=== PATIENT | male | born 1935 | race Caucasian/White ===

== ENCOUNTER 2017-06-11 15:17 | Inpatient (IN) ==
[2017-06-11] MEDS ORDERED: LIDOCAINE 1% 20 ML VIAL SQ ONE (15:18)
[2017-06-11] MEDS ORDERED: 0.9 % SODIUM CHLORIDE 1,000 ML IV ONE (15:47)
[2017-06-11] MEDS ORDERED: ACETAMINOPHEN 325 MG TABLET PO ONE (15:47)
--- NOTE | 2017-06-11 16:40 | XRay Report ---
CLINICAL INFORMATION: Fever TECHNIQUE: AP portable semiupright chest x-ray COMPARISON: 05/06/2017, 09/29/2016, 11/28/2015 FINDINGS: Mild cardiomegaly is unchanged. Pulmonary vascularity is normal. No pulmonary congestion. No pulmonary edema. Pulmonary parenchymal abnormality. No consolidation. No pulmonary mass. Pippa and mediastinum are negative. No acute abnormality. No interval change IMPRESSION: 1. No focal pulmonary parenchymal infiltrate 2. No acute abnormality. No interval change Interpreted and Authenticated by: Javier Reyes 06/11/17
[2017-06-11 16:48] LABS: Basophils # (Auto) 0 K/mcL (0.0-0.3); Basophils % (Auto) 0 % (0.0-2.0); Eosinophils # (Auto) 0 K/mcL (0.0-0.7); Eosinophils % (Auto) 0.1 % (0.0-7.0); Granulocytes % (Auto) 89.5 % (38.0-78.0); Lymphocytes # (Auto) 0.4 K/mcL (1.5-4.8); Lymphocytes % (Auto) 2.6 % (15.5-49.0); Mean Cell Volume 92.4 fL (80.0-100.0); Mean Corpuscular HGB Conc 33.8 g/dL (31.0-36.0); Mean Corpuscular Hemoglobin 31.2 pg (26.0-34.0); Monocytes # (Auto) 1.2 K/mcL (0.1-0.9); Monocytes % (Auto) 7.8 % (1.0-12.0); Platelet Count 192 K/mcL (140-440); RBC 3.04 M/mcL (4.50-5.90); Red Cell Distribution Width 14.6 % (11.5-14.5)
[2017-06-11 17:08] LABS: ALT/SGPT 10 U/l (0-40); Albumin 3.6 gm/dL (3.2-5.2); Alkaline Phosphatase 68 U/L (39-117); Blood Urea Nitrogen 46 mg/dl (8-23); C-Reactive Protein 9.9 mg/dl (0.0-0.8); Lipase 25 U/L (7-60)
--- NOTE | 2017-06-11 19:07 | Cat Scan Report ---
CLINICAL INFORMATION: Fever. Lethargy COMPARISON: None. TECHNIQUE: Axial noncontrast-enhanced images through the brain. FINDINGS: No acute intracranial hemorrhage. No subdural hematoma. No subarachnoid hemorrhage. No intra-axial hemorrhage. No focal attenuation abnormalities or localized mass effect. No midline shift. There is ventriculomegaly. There is white matter abnormality. This may be due to small vessel ischemic change. Normal pressure hydrocephalus cannot be excluded. Comparison with any prior examinations would be of benefit. There is a small focal low-density abnormality within the right brennan radiata consistent with old infarction. No acute intracranial abnormalities. Brainstem and cerebellum are negative. Basilar cisterns are normal. No hyperdense middle cerebral artery sign. No calvarial fracture. No lytic lesion. Temporal bones are negative. Paranasal sinuses are negative IMPRESSION: 1. Ventricular enlargement. Periventricular white matter abnormality may be small vessel ischemic change or interstitial edema. Clinical correlation for symptoms of normal pressure hydrocephalus recommended. 2. 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 No acute hemorrhage. No localized mass effect. Interpreted and Authenticated by: Javier Reyes 06/11/17
--- NOTE | 2017-06-11 19:17 | Cat Scan Report ---
CLINICAL INFORMATION: Fever. Pain. COMPARISON: None. TECHNIQUE: Axial images were obtained through the abdomen and pelvis. Sagittally and coronally reformatted images. Intravenous contrast material was not administered FINDINGS: Lung bases are negative. No parenchymal consolidation. No pleural fluid. No pericardial fluid. Incidental note is made of a small hiatal hernia Liver is negative to limits of noncontrast enhanced examination. Normal smooth liver contour. No ascites. Gallbladder is present. There are calcified gallstones in the dependent portions of the gallbladder. No pericholecystic fluid. No dilated bile ducts. Previous right nephrectomy. Left kidney is negative. No hydronephrosis. No detectable solid mass on this noncontrast enhanced examination. No obstructing or nonobstructing calculi. There is: Within the right nephrectomy bed. There are diverticuli. There is a focal abnormality adjacent to the ascending colon within the nephrectomy bed. This may be a small focal localized inflammatory process. This could be related to diverticulitis. No well-defined abscess. Adrenal glands are negative. Urinary bladder is abnormal. There is diffuse bladder wall thickening without discrete focal mass. This may be cyst. No intramural air. No bladder calculus. No detectable colonic mass. There is diverticulosis. There is mild pericolonic inflammatory change adjacent to the descending colon. As described above there is mild pericolonic inflammatory change in the right nephrectomy bed. Findings may be related to diverticulitis. No discrete abscess. No detectable colonic mass. No mechanical small bowel obstruction. No pathologic retroperitoneal or mesenteric adenopathy. No free intraperitoneal fluid. No localized fluid collections. No pneumatosis. No biliary or portal venous gas. There is atherosclerotic calcification of the abdominal aorta. No celiac or superior mesenteric artery stenosis. No abdominal aortic aneurysm. Lumbar spine is negative. No compression deformities. There is mild degenerative disc disease. There is multilevel degenerative facet arthropathy. Sacrum and pelvis are negative. No acute fracture. No lytic lesion. There is a prosthetic left hip. IMPRESSION: 1. Diffusely thickened urinary bladder wall. Cystitis is possible 2. Previous right nephrectomy 3. Diverticulosis. Pericolonic inflammatory change surrounding portions of the descending colon and: In the right nephrectomy bed. Mild diverticulitis possible. Interpreted and Authenticated by: Javier Reyes 06/11/17
--- NOTE | 2017-06-11 19:20 | XRay Report ---
CLINICAL INFORMATION: Fever of unknown origin TECHNIQUE: Informed consent was obtained. Fluoroscopy was utilized. Routine Betadine skin cleansing. 1% lidocaine injected subcutaneously and deep. 18-gauge spinal needle was utilized. Lumbar puncture performed at L2-L3. 9 mL clear CSF removed and sent to the laboratory for analysis IMPRESSION: Fluoroscopic guided lumbar puncture as above Interpreted and Authenticated by: Javier Reyes 06/11/17
--- NOTE | 2017-06-11 19:34 | Emergency Department Note ---
General Adult HPI - General Chief complaint: Fever Stated complaint: fever and weakness. Time Seen by Provider: 06/11/17 15:30 Source: patient Mode of arrival: ambulatory Limitations: no limitations - History of Present Illness HPI Narrative: 82-year-old male with chills for the last 2-3 days. Then today he developed fever with some lethargy and nausea. Decreased appetite last few days. He has had some urinary incontinence, though he has had urinary issues in the past. No shortness of breath. His right eye had a little bit of discharge but this seems to have resolved by the time he is here. He admits to diarrhea yesterday. His right hip osteoarthritis is acting up but this is well-known. His reports that he has been very cranky and obnoxious lately - Related Data Home Medications Medication Instructions Recorded Confirmed ascorbic acid (vitamin C) 1,000 mg 1,000 mg PO QDAY tab 03/23/15 06/06/17 tablet folic acid 800 mcg tablet 800 mcg PO QDAY tab 03/23/15 06/06/17 multivitamin tablet 1 tab PO QDAY tab 03/23/15 06/06/17 liraglutide 0.6 mg/0.1 mL (18 mg/3 1.2 mg SUB-Q QDAY 02/16/16 06/06/17 mL) subcutaneous pen injector Previous Rx's Medication Instructions Recorded Acetaminophen [Tylenol] 650 mg PO Q4HP PRN #0 tab 10/26/15 lancets 32 gauge See Dose Instructions .ROUTE 03/21/16 .MEDSUPPLY #100 each insulin glargine 300 unit/mL (1.5 27 unit SUB-Q QDAY #1.5 ml 03/27/16 mL) subcutaneous pen blood sugar diagnostic strips See Dose Instructions .ROUTE 04/05/16 .MEDSUPPLY #50 each glipizide ER 5 mg tablet, extended 5 mg PO QDAY 90 Days 11/02/16 release 24 hr cholecalciferol (vitamin D3) 1,000 1,000 unit PO QDAY #90 cap 12/04/16 unit capsule [employer] membership #1 each 01/02/17 sodium bicarbonate 650 mg tablet 1,300 mg PO BID #360 tab 03/06/17 amlodipine 5 mg tablet 5 mg PO BID 90 Days 03/08/17 calcium acetate 667 mg capsule 667 mg PO TID 90 Days 03/08/17 doxazosin 4 mg tablet 4 mg PO BID #180 tab 03/08/17 furosemide 40 mg tablet 80 mg PO .COMPLEX #180 tab 03/08/17 lisinopril 2.5 mg tablet 2.5 mg PO QDAY #90 tab 03/08/17 calcitriol 0.25 mcg capsule 0.25 mcg PO QOD 90 Days 04/25/17 glipizide ER 2.5 mg tablet, 2.5 mg PO QDAY #90 tab 04/25/17 extended release 24 hr atorvastatin 10 mg tablet 10 mg PO QDAY 90 Days 04/26/17 gabapentin 600 mg tablet 600 mg PO BID 90 Days 04/26/17 tramadol 50 mg tablet 50 mg PO Q6HP PRN #100 tab 06/06/17 Allergies Allergy/AdvReac Type Severity Reaction Status Date / Time hydrocodone Allergy Unknown Unknown Verified 06/11/17 15:23 Review of Systems All systems ED: reviewed and negative except as stated. Past Medical History - Past Medical History Attestation: Yes: The following information was validated with the patient. Medical history: Reports: arthritis, diabetes, hyperlipidemia, hypertension, renal disease, other (Anemia) Surgical history ED: Reports: cataract, hip replacement, other (Nephrectomy, TURP) - Social History smoking status: Former smoker Alcohol use: Reports: None Drug use: Reports: none Physical Exam Normocephalic atraumatic. Conjunctive are clear sclerae nonicteric. No nasal discharge or congestion. Oropharynx is pink and moist. Neck is supple without lymphadenopathy thyromegaly or carotid bruit. Heart is regular rate and rhythm no murmurs appreciated. Lungs are clear to auscultation bilaterally without wheezes rales rhonchi or respiratory distress. Abdomen soft nontender nondistended. No peritoneal signs or guarding. +1 pedal edema laterally. Tender at right hip area and he does not want to lay on that side. Alert oriented able answer questions appropriately. No dysarthria or facial dissymmetry. Globally weaker than expected. Irritable-his reports that this is a personality change - General Limitations: no limitations Course Vital Signs Temperature 100.2 F H 06/11/17 15:18 Pulse Rate 78 06/11/17 15:18 Respiratory Rate 16 06/11/17 15:18 Blood Pressure 173/65 06/11/17 15:18 Pulse Oximetry (%) 96 06/11/17 15:18 Temperature 100.7 F H 06/11/17 17:27 Pulse Rate 72 06/11/17 19:31 Respiratory Rate 24 H 06/11/17 18:16 Blood Pressure 142/53 06/11/17 19:31 Pulse Oximetry (%) 95 06/11/17 19:31 Medical Decision Making - Lab Data Lab results reviewed: Yes I reviewed the patient's lab results. Result diagrams: 06/11/17 16:00 06/11/17 16:00 Lab Results 06/11/17 06/11/17 06/11/17 Range/Units 16:00 16:00 16:00 WBC 15.4 H (4.5-11.0) K/mcL RBC 3.04 L (4.50-5.90) M/mcL Hgb 9.5 L (13.5-16.5) g/dL Hct 28.1 L (41.0-55.0) % MCV 92.4 (80.0-100.0) fL MCH 31.2 (26.0-34.0) pg MCHC 33.8 (31.0-36.0) g/dL RDW 14.6 H (11.5-14.5) % Plt Count 192 (140-440) K/mcL MPV 7.9 (7.4-10.4) fL Gran % 89.5 H (38.0-78.0) % Lymph % (Auto) 2.6 L (15.5-49.0) % [place] % (Auto) 7.8 (1.0-12.0) % Eos % (Auto) 0.1 (0.0-7.0) % Baso % (Auto) 0 (0.0-2.0) % Gran # 13.8 H (1.8-8.0) K/mcL Lymph # (Auto) 0.4 L (1.5-4.8) K/mcL [place] # (Auto) 1.2 H (0.1-0.9) K/mcL Eos # (Auto) 0 (0.0-0.7) K/mcL Baso # (Auto) 0 (0.0-0.3) K/mcL VBG Lactic Acid 1.0 (0.5-2.2) mmol/L Sodium 135 (133-145) mmol/L Potassium 4.9 (3.3-5.1) mmol/L Chloride 102 (96-108) mmol/L Carbon Dioxide 19 L (22-30) mmol/L Anion Gap 14.0 (8-16) BUN 46 H (8-23) mg/dl Creatinine 4.2 H (0.7-1.2) mg/dl GFR Calculation 12 Glucose 135 H (70-105) mg/dL Calcium 9.6 (8.6-10.4) mg/dl Total Bilirubin 0.7 (0.0-1.0) mg/dL AST 7 (0-37) U/l ALT 10 (0-40) U/l Alkaline Phosphatase 68 (39-117) U/L C-Reactive Protein 9.9 H (0.0-0.8) mg/dl Total Protein 7.1 (5.9-8.4) gm/dL Albumin 3.6 (3.2-5.2) gm/dL Globulin 3.5 (2.2-3.7) gm/dL Albumin/Globulin Ratio 1.0 (1.0-2.3) Lipase 25 (7-60) U/L Urinalysis [id number] dipstick shows moderate blood trace leukocytes negative nitrites specific gravity 1.010 Flu swab negative for AFB - Radiology Data Radiology results reviewed: Yes I reviewed the patient's radiology results. CT scan of the head without contrast shows old stroke but no acute pathology CT scan of the abdomen and pelvis without contrast is done secondary to elevated creatinine -shows possible mild diverticulitis or cystitis but no definite pathology [id number]-xltk bladder scan shows 100 mL in the bladder - EKG Data EKG #1 EKG attestation: Yes I reviewed and interpreted this EKG. EKG results narrative: EKG shows a rate of 75 with left bundle branch block otherwise normal sinus rhythm Disposition Pt seen by [facility]/PA only: No Clinical Impression: Fever of unknown origin, Chronic renal failure, stage 4 (severe) Summary: During workup patient was given normal saline and some Tylenol. He was not complaining of belly pain or dysuria Laboratory shows elevated white count and inflammatory markers concerning for occult infection. CT of abdomen and pelvis shows possible mild cystitis or diverticulitis however this is not very consistent with his exam. Cerebral spinal fluid labs are pending. Cultures are ordered and antibiotics started Discussed case with Dr. Haile our hospitalist who agreed to accept patient for further inpatient care Disposition: Xfer As Inpt ([facility]) Condition: Serious Referrals: Vimal Clark PA-C [Primary Care Provider] -
[2017-06-11] MEDS ORDERED: 0.9 % SODIUM CHLORIDE 1,000 ML IV SCH (19:47)
[2017-06-11] MEDS ORDERED: POTASSIUM CHLORIDE 20 MEQ PACKET PO PRN (19:47)
[2017-06-11] MEDS ORDERED: AMPICILLIN SODIUM 2 GM VIAL IV SCH (19:47)
[2017-06-11] MEDS ORDERED: ONDANSETRON 4 MG/2 ML VIAL IV PRN (19:47)
[2017-06-11] MEDS ORDERED: traZODone HCL 50 MG TABLET PO PRN (19:47)
[2017-06-11] MEDS ORDERED: ACYCLOVIR SODIUM 500 MG VIAL IV SCH (19:47)
[2017-06-11] MEDS ORDERED: ACETAMINOPHEN 325 MG TABLET PO PRN (19:47)
[2017-06-11] MEDS ORDERED: VANCOMYCIN PER PHARMACY IV SCH (19:47)
[2017-06-11] MEDS ORDERED: ACETAMINOPHEN 1,000 MG/100 ML BOTTLE IV PRN (19:47)
[2017-06-11] MEDS ORDERED: MAGNESIUM SULFATE 2 GM/50 ML BAG IV PRN (19:47)
[2017-06-11] MEDS ORDERED: metroNIDAZOLE 500 MG/100 ML BAG IV ONE (19:55)
[2017-06-11] MEDS ORDERED: LEVOFLOXACIN 500 MG/100 ML BAG IV ONE (19:55)
[2017-06-11 20:46] LABS: Glucose,CSF 84 mg/dL (45-75)
[2017-06-11] MEDS ORDERED: ACYCLOVIR SODIUM 800 MG in 0.9 % SODIUM CHLORIDE 150 ML IV SCH (21:00)
[2017-06-11] MEDS ORDERED: SENNOSIDES/DOCUSATE SODIUM 1 TAB TABLET PO SCH (21:00)
[2017-06-11] MEDS: DOCUSATE SODIUM 100 MG CAPSULE PO SCH (21:13)
[2017-06-11 21:30] LABS: Appearance,CSF CLEAR; Nucleated Cells,CSF 2 /cumm (0-5); Red Blood Cell,CSF 0 /cumm (0-1)
[2017-06-11] MEDS ORDERED: VANCOMYCIN 500 MG VIAL ONE (21:30)
[2017-06-11] MEDS ORDERED: VANCOMYCIN 1,500 MG in 0.9 % SODIUM CHLORIDE 500 ML IV ONE (22:00)
[2017-06-11] MEDS ORDERED: AMPICILLIN SODIUM 2 GM in 0.9 % SODIUM CHLORIDE 100 ML IV ONE (22:00)
[2017-06-11 22:01] LABS: C-Reactive Protein 10.7 mg/dl (0.0-0.8)
[2017-06-11] MEDS: 0.9 % SODIUM CHLORIDE 10 ML SYRINGE IV SCH (22:03)
[2017-06-11] MEDS: cefTRIAXone 2 GM in DEXTROSE 5% IN WATER 50 ML IV SCH (22:55)
--- NOTE | 2017-06-11 23:14 | Internal Med History&Physical ---
Medical - H&P: [facility] Patient information: Note initiated : 06/11/17 at 11:10 pm Service Date, if different from initiated Date: [] Patient: Zachary Villavicencio 82 y/o M admitted on 06/11/17 for fever and weakness.. Chief Complaint: [] Chief complaint: ever and weakness History of present illness: Mr. Villavicencio is a 82 year old M who presents to [facility] ER with confusion and fever and weakness. atient's symptom started roughly 2-3 days ago with mild dysuria and shaking chills. however over the next 48 hours he is at significant change in mental status has been belligerent and very confused along with fever of 102. ost of the history was obtained from his . He did not have any shortness of breath diarrhea or photophobia but endorses to headache and myalgias. e denies flulike symptoms or ear or nose discharge. He denies sick contacts. He denies weight loss plan wrist swelling initial workup in the ER was significant for white count over 15,400. Patient underwent lumbar puncture along with CT abdomen and chest to rule out occult infectious source. hospitalist service was then consulted at the time of examination patient isfairly confused. Most of the history is obtained from ED records and patient's . patient was able to participate in review of systems he denies active chest pain shortness of breath and lightheadedness. He was fairly combative during lumbar puncture. REVIEW OF SYSTEMS 10.2 system was attempted and is negative except for ones discussed above Medical - H&P: PMH Medical history: 1. Hypertension. 2. Benign prostate hypertrophy. 3. Diabetes mellitus type 2. 4. Hyperlipidemia. 5. Iron deficiency anemia. 6. Neuropathy. 7. Chronic kidney disease stage 5, baseline creatinine over 3.5 Pertinent family history: CAD father colon cancer mother Social history: with [place] retired Functional capacity: uses cane/walker Smoking status: Never smoker Drug use: none Alcohol use: none Medical - H&P: Meds Home Medications Medication Instructions Recorded Confirmed Type ascorbic acid (vitamin C) 1,000 mg 1,000 mg PO QDAY tab 03/23/15 06/06/17 History tablet folic acid 800 mcg tablet 800 mcg PO QDAY tab 03/23/15 06/06/17 History multivitamin tablet 1 tab PO QDAY tab 03/23/15 06/06/17 History Acetaminophen [Tylenol] 650 mg PO Q4HP PRN #0 tab 10/26/15 06/06/17 Rx liraglutide 0.6 mg/0.1 mL (18 mg/3 1.2 mg SUB-Q QDAY 02/16/16 06/06/17 History mL) subcutaneous pen injector lancets 32 gauge See Dose Instructions .ROUTE 03/21/16 06/06/17 Rx .MEDSUPPLY #100 each insulin glargine 300 unit/mL (1.5 27 unit SUB-Q QDAY #1.5 ml 03/27/16 06/06/17 Rx mL) subcutaneous pen blood sugar diagnostic strips See Dose Instructions .ROUTE 04/05/16 06/06/17 Rx .MEDSUPPLY #50 each glipizide ER 5 mg tablet, extended 5 mg PO QDAY 90 Days 11/02/16 06/06/17 Rx release 24 hr cholecalciferol (vitamin D3) 1,000 1,000 unit PO QDAY #90 cap 12/04/16 06/06/17 Rx unit capsule athletic club membership #1 each 01/02/17 06/06/17 Rx sodium bicarbonate 650 mg tablet 1,300 mg PO BID #360 tab 03/06/17 06/06/17 Rx amlodipine 5 mg tablet 5 mg PO BID 90 Days 03/08/17 06/06/17 Rx calcium acetate 667 mg capsule 667 mg PO TID 90 Days 03/08/17 06/06/17 Rx doxazosin 4 mg tablet 4 mg PO BID #180 tab 03/08/17 06/06/17 Rx furosemide 40 mg tablet 80 mg PO .COMPLEX #180 tab 03/08/17 06/06/17 Rx lisinopril 2.5 mg tablet 2.5 mg PO QDAY #90 tab 03/08/17 06/06/17 Rx calcitriol 0.25 mcg capsule 0.25 mcg PO QOD 90 Days 04/25/17 06/06/17 Rx atorvastatin 10 mg tablet 10 mg PO QDAY 90 Days 04/26/17 06/06/17 Rx gabapentin 600 mg tablet 600 mg PO BID 90 Days 04/26/17 06/06/17 Rx tramadol 50 mg tablet 50 mg PO Q6HP PRN #100 tab 06/06/17 06/12/17 Rx Atorvastatin 10 mg PO DAILY 06/12/17 06/12/17 History Allergies Allergy/AdvReac Type Severity Reaction Status Date / Time hydrocodone Allergy Unknown Unknown Verified 06/11/17 15:23 Medical - H&P: Exam - Constitutional Vitals: Temp Pulse Resp BP Pulse Ox 100.7 F H 72 24 H 142/53 95 06/11/17 19:55 06/11/17 19:55 06/11/17 19:55 06/11/17 19:55 06/11/17 19:55 General appearance: average body habitus, moderate distress (nxious and fidgety) Exam: upils symmetric Oral cavity dry no ear or nose discharge Head normocephalic Chest clear to auscultation S1 and S2 egular,ESM grade 1 abdomen soft Lower extremity no cyanosis clubbing Skin no suspicious lesion psych anxious confused and fidgety and noncooperative Neuro higher functions Abnormal moving all 4 extremities Medical - H&P: Reslt - Labs CBC & Chem 7: 06/12/17 04:38 06/12/17 04:38 Medical - H&P: A/P (1) Sepsis Current visit: Yes Status: Acute * sepsis- unclear source. Rule out encephalitis/meningitis. Status post lumbar puncture. Blood cultures pending. CT abdomen and chest negative. Continue empiric coverage for meningitis/viral encephalitis * Acute change in mental status-rule out encephalitis. Await CSF studies. Continue acyclovir/vancomycin/Rocephin/ampicillin * hypertension-restart calcium channel jalen * DM type II continue basal prandial insulin * neuropathy continue gabapentin * stage V CKD- baseline creatinine around 3.5-4. continue monitoring * hyperlipidemia continue statin * Full code Plan * Empiric coverage for encephalitis/meningitis * Await CSF studies * Neuro checks * Admit to telemetry * Anticipate minimum 2 mid night stay Medical - H&P: Qual - VTE Deep Vein Thrombosis/Pulmonary Embolism Present on Admission: No
[2017-06-12] MEDS ORDERED: AMPICILLIN SODIUM 2 GM in 0.9 % SODIUM CHLORIDE 100 ML IV SCH
[2017-06-12] MEDS: 0.9 % SODIUM CHLORIDE 10 ML SYRINGE IV SCH ×3 (06:26→22:29)
[2017-06-12 07:09] LABS: Mean Cell Volume 92.7 fL (80.0-100.0); Mean Corpuscular HGB Conc 33.5 g/dL (31.0-36.0); Platelet Count 176 K/mcL (140-440); RBC 2.73 M/mcL (4.50-5.90); Red Cell Distribution Width 13.9 % (11.5-14.5)
[2017-06-12 07:46] LABS: ALT/SGPT 9 U/l (0-40); Albumin 3.3 gm/dL (3.2-5.2); Albumin/Globulin Ratio 1.1 (1.0-2.3); Alkaline Phosphatase 71 U/L (39-117); Bilirubin,Direct < 0.2 mg/dL (0.0-0.3); Blood Urea Nitrogen 44 mg/dl (8-23); Gamma Glutamyl Transpeptidase 16 U/L (8-61); Uric Acid 5.3 mg/dL (2.5-8.0)
[2017-06-12 08:48] LABS: Band Neutrophils % 1 % (0-10); Eosinophils % (Manual) 2 % (0-7); Lymphocytes % 8 % (15-49); Monocytes % (Manual) 6 % (1-12); Platelet Estimate NORMAL (NORMAL); RBC Morphology NORMAL (NORMAL); Segmented Neutrophils % 83 % (38-78)
[2017-06-12] MEDS ORDERED: MULTIVIT,THER IRON,CA,FA & MIN 1 TABLET PO SCH (09:00)
[2017-06-12] MEDS: DOCUSATE SODIUM 100 MG CAPSULE PO SCH ×2 (09:43→21:50)
[2017-06-12] MEDS: cefTRIAXone 2 GM in DEXTROSE 5% IN WATER 50 ML IV SCH (09:54)
--- NOTE | 2017-06-12 10:23 | Internal Med Progress Note ---
Medical - PN: Subj Patient information: Note initiated : 06/12/17 at 10:20 am Service Date, if different from initiated Date: [] Patient: Zachary Villavicencio 82 y/o M admitted on 06/11/17 for fever and weakness.. Chief Complaint: [] Interval history: Mr. Villavicencio is a 82 year old M who [facility] with confusion and fever and weakness. atient's symptom started roughly 2-3 days ago with mild dysuria and shaking chills. however over the next 48 hours he is at significant change in mental status has been belligerent and very confused along with fever of 102. ost of the history was obtained from his . He did not have any shortness of breath diarrhea or photophobia but endorses to headache and myalgias. e denies flulike symptoms or ear or nose discharge. He denies sick contacts. He denies weight loss plan wrist swelling initial workup in the ER was significant for white count over 15,400. Patient underwent lumbar puncture along with CT abdomen and chest to rule out occult infectious source. 06/12-white count down to 11.7. CSF studies negative. Cultures negative so far. DC ampicillin/acyclovir. And continue Rocephin/ancomycin. Enterococci on urine culture. c. difficile negative. patient however this morning is much alert and oriented but refusing all treatments. however after discussion with staff patient finally agrees to continue treatment. Patient stable enough to be transferred to medical floor while further workup is ongoing. Overnight MAXIMUM TEMPERATURE 102 - Constitutional Vitals: Vital Signs Temp Pulse Resp BP Pulse Ox 99.1 F H 70 16 137/57 95 06/12/17 04:25 06/11/17 20:18 06/12/17 04:25 06/12/17 04:25 06/12/17 04:25 Period Temp Pulse Resp BP Sys/Juárez Pulse Ox Last 24 Hr 99.1 F-101.0 F 70-72 16-24 133-158/50-100 95-95 Intake and Output 06/11/17 06/12/17 06/12/17 21:59 05:59 13:59 Intake Total 339 / 339 50 / 50 Output Total 1100 / 1100 Balance -761 / -761 50 / 50 Weight 223 lb Intake & Output: Intake & Output 06/11/17 06/12/17 06/12/17 21:59 05:59 13:59 Intake Total 339 / 339 50 / 50 Output Total 1100 / 1100 Balance -761 / -761 50 / 50 Weight 223 lb Intake: IV 339 / 339 50 / 50 Sodium Chloride 0.9% 1, 339 / 339 0 / 0 000 ml @ 50 mls/hr IV . Q20H [facility] Rx#:[id number] Rocephin 2 gm In Dextrose 50 / 50 5% in Water 50 ml @ 100 mls/hr IV Q24H [facility] Rx#: [id number] Output: Void Amount 1100 / 1100 General appearance: cooperative, no acute distress Exam: ore alert and lucid nonlabored breathing nondistended abdomen Minimal anxiety Medical - PN: Obj Da - Labs CBC & Chem 7: 06/12/17 04:38 06/12/17 04:38 Labs: Abnormal Lab Results 06/12/17 06/12/17 06/11/17 04:38 04:38 20:35 WBC 11.7 H RBC 2.73 L Hgb 8.5 L Hct 25.3 L Seg Neutrophils % 83 H Lymphocytes % 8 L ESR Carbon Dioxide 18 L BUN 44 H Creatinine 4.0 H Glucose 148 H C-Reactive Protein 10.7 H CSF Glucose 06/11/17 06/11/17 20:35 19:48 WBC RBC Hgb Hct Seg Neutrophils % Lymphocytes % ESR 97 H Carbon Dioxide BUN Creatinine Glucose C-Reactive Protein CSF Glucose 84 H Meds: Medications Acetaminophen (Tylenol) 650 mg PO Q4-6HP PRN PRN Reason: PAIN/FEVER > 101 Docusate Sodium (Colace) 100 mg PO BID [facility] Last Admin: 06/12/17 09:43 Dose: Not Given Ceftriaxone Sodium 2 gm/ (Dextrose) 50 mls @ 100 mls/hr IV Q24H [facility] Last Admin: 06/12/17 09:54 Dose: 100 mls/hr Magnesium Sulfate (Magnesium Sulfate) 2 gm in 50 mls @ 50 mls/hr IV UD PRN PRN Reason: MG = or < 1.7 Sodium Chloride (Sodium Chloride 0.9%) 1,000 mls @ 50 mls/hr IV .Q20H [facility] Stop: 06/14/17 07:46 Last Infusion: 06/12/17 09:45 Dose: 50 mls/hr Acetaminophen (Ofirmev) 1,000 mg in 100 mls @ 200 mls/hr IV Q6HP PRN PRN Reason: PAIN/FEVER > 101 Last Admin: 06/12/17 00:13 Dose: 200 mls/hr Iron Carb/Multivit/Peconic/Folic Acid (Multivitamin W/Minerals) 1 tab PO DAILY [facility] Last Admin: 06/12/17 09:44 Dose: Not Given Ondansetron HCl (Zofran) 4 mg IV Q4-6HP PRN PRN Reason: Nausea And Vomiting Potassium Chloride (Klor-Con) 40 meq PO DAILYP PRN PRN Reason: K+ < 3.5 Senna/Docusate Sodium (Senna Plus Tablet) 1 tab PO HS [facility] Last Admin: 06/11/17 21:50 Dose: Not Given Sodium Chloride (Saline Flush) 10 ml IV Q8 [facility] Last Admin: 06/12/17 06:26 Dose: Not Given Trazodone HCl (Desyrel) 50 mg PO HSP PRN PRN Reason: Insomnia Vancomycin HCl (Vancomycin Per Pharmacy) 1 order IV UD [facility] Medical - PN: A/P - Time Spent With Patient Total time spent is greater than 50% in coordination of care (as documented) at patient's floor/unit and/or counseling patient: 25 - 35 minutes (1) Sepsis Status: Acute Assessment and plan: * Sepsis- unclear source. Rule out encephalitis/meningitis. Status post lumbar puncture. Blood cultures pending. CT abdomen and chest negative. Continue empiric coverage for meningitis/viral encephalitis * complicated enterococcus UTI- continue vancomycin * Acute change in mental status-clinically improving. Negative CS studies. dC acyclovir A/ampicillin * hypertension-continue calcium channel jalen * DM type II continue basal prandial insulin * neuropathy continue gabapentin * Stage V CKD- baseline creatinine around 3.5-4. continue monitoring * hyperlipidemia continue statin * Full code Plan * continue enterococci coverage * repeat UA * DC acyclovir/ampicillin * transfer to medical floor Current Visit: Yes Medical - PN: Qual - VTE Deep Vein Thrombosis/Pulmonary Embolism Present on Admission: No
[2017-06-12] MEDS ORDERED: ACETAMINOPHEN 325 MG TABLET PO PRN (12:15)
[2017-06-12] MEDS ORDERED: ACETAMINOPHEN 1,000 MG/100 ML BOTTLE IV PRN (12:15)
[2017-06-12] MEDS ORDERED: traZODone HCL 50 MG TABLET PO PRN (12:15)
[2017-06-12] MEDS ORDERED: MAGNESIUM SULFATE 2 GM/50 ML BAG IV PRN (12:15)
[2017-06-12] MEDS ORDERED: POTASSIUM CHLORIDE 20 MEQ PACKET PO PRN (12:15)
[2017-06-12] MEDS ORDERED: ONDANSETRON 4 MG/2 ML VIAL IV PRN (12:15)
[2017-06-12] MEDS ORDERED: VANCOMYCIN PER PHARMACY IV SCH (12:15)
[2017-06-12 14:37] LABS: Appearance,Urine CLEAR; Bacteria,Urine 0 /hpf (0); Bilirubin,Urine NEG (NEG); Color,Urine YELLOW; Glucose,Urine (UA) >=500 mg/dL (NEG); Leukocyte Esterase,Urine NEG /uL (NEG); Nitrate,Urine NEG (NEG); Protein,Urine >=500 mg/dL (NEG); Specific Gravity,Urine 1.014 (1.000-1.035); Urine Blood NEG mg/dL (<0.03); Urine RBC 0 /hpf (0-1); Urine Squamous Epithelial Cell 0 /hpf (0-4); Urine WBC 2 /hpf (0-4); Urobilinogen,Urine NEG (NEG)
[2017-06-12] MEDS ORDERED: DEXTROSE 31 GM ORAL.SUSP PO PRN (17:29)
[2017-06-12] MEDS ORDERED: DEXTROSE 50% 50 ML VIAL IV PRN (17:29)
[2017-06-12] MEDS: INSULIN LISPRO 1 UNIT/0.01 ML UNIT SQ SCH ×2 (17:41→21:51)
[2017-06-12] MEDS: 0.9 % SODIUM CHLORIDE 1,000 ML IV SCH (17:42)
[2017-06-12] MEDS ORDERED: traMADol 50 MG TABLET PO PRN (19:27)
[2017-06-12] MEDS ORDERED: INSULIN LISPRO 1 UNIT/0.01 ML UNIT SQ SCH (21:00)
[2017-06-12] MEDS: GABAPENTIN 300 MG CAPSULE PO SCH (21:49)
[2017-06-12] MEDS: SODIUM BICARBONATE 650 MG TABLET PO SCH (21:49)
[2017-06-12] MEDS: SENNOSIDES/DOCUSATE SODIUM 1 TAB TABLET PO SCH (21:49)
[2017-06-12] MEDS: FUROSEMIDE 40 MG TABLET PO SCH (21:50)
[2017-06-12] MEDS: amLODIPine 5 MG TABLET PO SCH (21:50)
[2017-06-12] MEDS: DOXAZOSIN 4 MG TABLET PO SCH (21:50)
[2017-06-12] MEDS ORDERED: AMPICILLIN SODIUM IV ONE (22:00)
[2017-06-12] MEDS ORDERED: SODIUM CHLORIDE 0.9% IV ONE (22:00)
[2017-06-13] MEDS: 0.9 % SODIUM CHLORIDE 1,000 ML IV SCH ×2 (03:30→23:47)
[2017-06-13] MEDS: 0.9 % SODIUM CHLORIDE 10 ML SYRINGE IV SCH ×3 (05:25→21:27)
[2017-06-13 07:31] LABS: Mean Cell Volume 92.2 fL (80.0-100.0); Mean Corpuscular HGB Conc 33.4 g/dL (31.0-36.0); Mean Corpuscular Hemoglobin 30.8 pg (26.0-34.0); Platelet Count 196 K/mcL (140-440); RBC 2.91 M/mcL (4.50-5.90); Red Cell Distribution Width 14.3 % (11.5-14.5)
[2017-06-13] MEDS: INSULIN LISPRO 1 UNIT/0.01 ML UNIT SQ SCH ×4 (07:42→21:19)
[2017-06-13] MEDS: glipiZIDE 5 MG TAB.XL.24H PO SCH (07:43)
[2017-06-13 08:12] LABS: Band Neutrophils % 1 % (0-10); Eosinophils % (Manual) 1 % (0-7); Lymphocytes % 8 % (15-49); Monocytes % (Manual) 10 % (1-12); Platelet Estimate NORMAL (NORMAL); RBC Morphology NORMAL (NORMAL); Segmented Neutrophils % 80 % (38-78)
[2017-06-13 08:23] LABS: ALT/SGPT 14 U/l (0-40); Albumin 3.1 gm/dL (3.2-5.2); Albumin/Globulin Ratio 0.9 (1.0-2.3); Alkaline Phosphatase 63 U/L (39-117); Bilirubin,Direct < 0.2 mg/dL (0.0-0.3); Blood Urea Nitrogen 40 mg/dl (8-23); Gamma Glutamyl Transpeptidase 15 U/L (8-61); Uric Acid 5.1 mg/dL (2.5-8.0)
[2017-06-13] MEDS ORDERED: FUROSEMIDE 80 MG TABLET PO SCH (09:00)
[2017-06-13 09:02] LABS: Lymphocytes,CSF 100 % (40-80); Total Cell Ct,CSF 2
[2017-06-13] MEDS ORDERED: VANCOMYCIN 1,500 MG in 0.9 % SODIUM CHLORIDE 500 ML IV ONE (10:00)
[2017-06-13] MEDS: FOLIC ACID 1 MG TABLET PO SCH (10:13)
[2017-06-13] MEDS: MULTIVIT,THER IRON,CA,FA & MIN 1 TABLET PO SCH (10:13)
[2017-06-13] MEDS: GABAPENTIN 300 MG CAPSULE PO SCH ×2 (10:14→21:20)
[2017-06-13] MEDS: amLODIPine 5 MG TABLET PO SCH ×2 (10:14→21:20)
[2017-06-13] MEDS: SODIUM BICARBONATE 650 MG TABLET PO SCH ×2 (10:14→21:21)
[2017-06-13] MEDS: DOXAZOSIN 4 MG TABLET PO SCH ×2 (10:14→21:21)
[2017-06-13] MEDS: CALCITRIOL 0.25 MCG CAPSULE PO SCH (10:14)
[2017-06-13] MEDS: cefTRIAXone 2 GM in DEXTROSE 5% IN WATER 50 ML IV SCH (10:14)
[2017-06-13] MEDS: ATORVASTATIN 20 MG TABLET PO SCH (10:14)
[2017-06-13] MEDS: DOCUSATE SODIUM 100 MG CAPSULE PO SCH ×2 (10:17→21:20)
--- NOTE | 2017-06-13 11:09 | Internal Med Progress Note ---
Medical - PN: Subj Patient information: Note initiated : 06/13/17 at 11:09 am Service Date, if different from initiated Date: [] Patient: Zachary Villavicencio 82 y/o M admitted on 06/11/17 for Fever and Weakness. Chief Complaint: [] Interval history: Mr. Villavicencio is a 82 year old M who [facility] with confusion and fever and weakness. atient's symptom started roughly 2-3 days ago with mild dysuria and shaking chills. however over the next 48 hours he is at significant change in mental status has been belligerent and very confused along with fever of 102. ost of the history was obtained from his . He did not have any shortness of breath diarrhea or photophobia but endorses to headache and myalgias. e denies flulike symptoms or ear or nose discharge. He denies sick contacts. He denies weight loss plan wrist swelling initial workup in the ER was significant for white count over 15,400. Patient underwent lumbar puncture along with CT abdomen and chest to rule out occult infectious source. 06/12-white count down to 11.7. CSF studies negative. Cultures negative so far. DC ampicillin/acyclovir. And continue Rocephin/ancomycin. Enterococci on urine culture. c. difficile negative. patient however this morning is much alert and oriented but refusing all treatments. however after discussion with staff patient finally agrees to continue treatment. Patient stable enough to be transferred to medical floor while further workup is ongoing. Overnight MAXIMUM TEMPERATURE 102 06/13- patient appears a lot better.no overnight events. No concerns per staff. Improved confusion. Denies abdominal pain nausea. No concerns per nursing staff.sitting on chair Able to walk with front-wheeled walker with assist. benton count down to 10.2. reatinine 3.8 - Constitutional Vitals: Vital Signs Temp Pulse Resp BP Pulse Ox 98.1 F 71 22 169/74 97 06/13/17 08:00 06/13/17 08:00 06/13/17 08:00 06/13/17 08:00 06/13/17 08:00 Period Temp Pulse Resp BP Sys/Juárez Pulse Ox Last 24 Hr 97.8 F-99.5 F 62-80 16-24 130-169/58-82 93-98 Intake and Output 0906/13/17 06/13/17 21:59 05:59 13:59 Intake Total 200 / 200 300 / 300 Output Total 290 / 290 3 / 3 Balance -90 / -90 297 / 297 Weight 222 lb 8 oz Intake & Output: Intake & Output 06/12/17 06/13/17 06/13/17 21:59 05:59 13:59 Intake Total 200 / 200 300 / 300 Output Total 290 / 290 3 / 3 Balance -90 / -90 297 / 297 Weight 222 lb 8 oz Intake: Oral 200 / 200 300 / 300 Output: Void Amount 285 / 285 # of times incontinent of 5 / 5 3 / 3 urine General appearance: cooperative, no acute distress Exam: alert oriented nonlabored breathing Nondistended abdomen no obvious lymphedema Medical - PN: Obj Da - Labs CBC & Chem 7: 06/14/17 05:56 06/14/17 05:56 Labs: Abnormal Lab Results 06/13/17 06/13/17 06/12/17 07:00 07:00 16:22 WBC RBC 2.91 L Hgb 8.9 L Hct 26.8 L Seg Neutrophils % 80 H Lymphocytes % 8 L ESR Carbon Dioxide 14 L Anion Gap 17.0 H BUN 40 H Creatinine 3.8 H Glucose 156 H C-Reactive Protein Albumin 3.1 L Albumin/Globulin Ratio 0.9 L Urine Protein Urine Glucose (UA) CSF Lymphocytes CSF Glucose Random Vancomycin 12.0 H 06/12/17 06/12/17 06/12/17 14:05 04:38 04:38 WBC 11.7 H RBC 2.73 L Hgb 8.5 L Hct 25.3 L Seg Neutrophils % 83 H Lymphocytes % 8 L ESR Carbon Dioxide 18 L Anion Gap BUN 44 H Creatinine 4.0 H Glucose 148 H C-Reactive Protein Albumin Albumin/Globulin Ratio Urine Protein >=500 A Urine Glucose (UA) >=500 A CSF Lymphocytes CSF Glucose Random Vancomycin 06/11/17 06/11/17 06/11/17 20:35 20:35 19:48 WBC RBC Hgb Hct Seg Neutrophils % Lymphocytes % ESR 97 H Carbon Dioxide Anion Gap BUN Creatinine Glucose C-Reactive Protein 10.7 H Albumin Albumin/Globulin Ratio Urine Protein Urine Glucose (UA) CSF Lymphocytes 100 H CSF Glucose 84 H Random Vancomycin Meds: Medications Acetaminophen (Tylenol) 650 mg PO Q4-6HP PRN PRN Reason: PAIN/FEVER > 101 Amlodipine Besylate (Norvasc) 5 mg PO BID [facility] Last Admin: 06/13/17 10:14 Dose: 5 mg Atorvastatin Calcium (Lipitor) 10 mg PO DAILY [facility] Last Admin: 06/13/17 10:14 Dose: 10 mg Calcitriol (Rocaltrol) 0.25 mcg PO DAILY [facility] Last Admin: 06/13/17 10:14 Dose: 0.25 mcg Calcium Acetate (Phoslo) 667 mg PO TIDCC [facility] Dextrose (Dextrose 50%) 0 ml IV UD PRN PRN Reason: Hypoglycemia Diagnostic Test (Pha) (Accu-Chek) 1 each FS ACHS [facility] Last Admin: 06/13/17 07:36 Dose: 1 each Docusate Sodium (Colace) 100 mg PO BID [facility] Last Admin: 06/13/17 10:17 Dose: 100 mg Doxazosin Mesylate (Cardura) 4 mg PO BID [facility] Last Admin: 06/13/17 10:14 Dose: 4 mg Folic Acid (Folic Acid) 1 mg PO DAILY [facility] Last Admin: 06/13/17 10:13 Dose: 1 mg Furosemide (Lasix) 40 mg PO HS [facility] Last Admin: 06/12/17 21:50 Dose: Not Given Furosemide (Lasix) 80 mg PO DAILY [facility] Last Admin: 06/13/17 10:14 Dose: 80 mg Gabapentin (Neurontin) 600 mg PO BID [facility] Last Admin: 06/13/17 10:14 Dose: 600 mg Glipizide (Glucotrol Xl) 5 mg PO QAMAC [facility] Last Admin: 06/13/17 07:43 Dose: 5 mg Glucose (Insta-Glucose) 15 gm PO PRN PRN PRN Reason: Hypoglycemia Ceftriaxone Sodium 2 gm/ (Dextrose) 50 mls @ 100 mls/hr IV Q24H [facility] Last Admin: 06/13/17 10:14 Dose: 100 mls/hr Magnesium Sulfate (Magnesium Sulfate) 2 gm in 50 mls @ 50 mls/hr IV UD PRN PRN Reason: MG = or < 1.7 Sodium Chloride (Sodium Chloride 0.9%) 1,000 mls @ 50 mls/hr IV .Q20H [facility] Stop: 06/14/17 07:46 Last Admin: 06/13/17 03:30 Dose: 50 mls/hr Acetaminophen (Ofirmev) 1,000 mg in 100 mls @ 200 mls/hr IV Q6HP PRN PRN Reason: PAIN/FEVER > 101 Vancomycin HCl 1,500 mg/ (Sodium Chloride) 500 mls @ 333.3 mls/hr IV ONCE ONE Stop: 06/13/17 11:30 Insulin Human Lispro (Humalog) 0 unit SQ ACHS SWATHI PRN Reason: Protocol Last Admin: 06/13/17 07:42 Dose: 4 unit Iron Carb/Multivit/[place]/Folic Acid (Multivitamin W/Minerals) 1 tab PO DAILY [facility] Last Admin: 06/13/17 10:13 Dose: 1 tab Lisinopril (Zestril) 2.5 mg PO DAILY [facility] Ondansetron HCl (Zofran) 4 mg IV Q4-6HP PRN PRN Reason: Nausea And Vomiting Potassium Chloride (Klor-Con) 40 meq PO DAILYP PRN PRN Reason: K+ < 3.5 Senna/Docusate Sodium (Senna Plus Tablet) 1 tab PO HS [facility] Last Admin: 06/12/17 21:49 Dose: 1 tab Sodium Bicarbonate (Sodium Bicarbonate) 1,300 mg PO BID [facility] Last Admin: 06/13/17 10:14 Dose: 1,300 mg Sodium Chloride (Saline Flush) 10 ml IV Q8 [facility] Last Admin: 06/13/17 05:25 Dose: Not Given Tramadol HCl (Ultram) 50 mg PO Q6HP PRN PRN Reason: Pain Trazodone HCl (Desyrel) 50 mg PO HSP PRN PRN Reason: Insomnia Vancomycin HCl (Vancomycin Per Pharmacy) 1 order IV [facility] Medical - PN: A/P - Time Spent With Patient Total time spent is greater than 50% in coordination of care (as documented) at patient's floor/unit and/or counseling patient: 15 - 24 minutes (1) Sepsis Status: Acute Assessment and plan: * Sepsis- unclear source. clinically resolved. ikely secondary to complicated UTI. Negative CSF and blood cultures. CT abdomen and chest negative. * acute change in mental status secondary to sepsis-clinically improved * complicated enterococcus UTI- continue vancomycin. Await sensitivities. repeat UA negative * hypertension-continue calcium channel jalen * DM type II continue basal prandial insulin * neuropathy continue gabapentin * Stage V CKD- baseline creatinine around 3.5. continue monitoring * hyperlipidemia continue statin * Full code Plan * continue enterococcal coverage * Anticipate discharge in 24 hours once sensitivities resulted Current Visit: Yes Medical - PN: Qual - VTE Deep Vein Thrombosis/Pulmonary Embolism Present on Admission: No
[2017-06-13] MEDS: CALCIUM ACETATE 667 MG CAPSULE PO SCH (18:05)
[2017-06-13] MEDS: SENNOSIDES/DOCUSATE SODIUM 1 TAB TABLET PO SCH (21:21)
[2017-06-13] MEDS: FUROSEMIDE 40 MG TABLET PO SCH (21:26)
[2017-06-14] MEDS: 0.9 % SODIUM CHLORIDE 1,000 ML IV SCH (02:19)
[2017-06-14] MEDS: 0.9 % SODIUM CHLORIDE 10 ML SYRINGE IV SCH (06:14)
[2017-06-14 06:42] LABS: Mean Cell Volume 92.4 fL (80.0-100.0); Mean Corpuscular HGB Conc 33.5 g/dL (31.0-36.0); Mean Corpuscular Hemoglobin 30.9 pg (26.0-34.0); Platelet Count 215 K/mcL (140-440); RBC 2.85 M/mcL (4.50-5.90); Red Cell Distribution Width 14.4 % (11.5-14.5)
[2017-06-14] MEDS ORDERED: FUROSEMIDE 80 MG TABLET PO SCH (07:00)
[2017-06-14] MEDS: INSULIN LISPRO 1 UNIT/0.01 ML UNIT SQ SCH ×2 (07:03→11:12)
[2017-06-14 07:09] LABS: ALT/SGPT 22 U/l (0-40); Albumin 3.1 gm/dL (3.2-5.2); Alkaline Phosphatase 65 U/L (39-117); Bilirubin,Direct < 0.2 mg/dL (0.0-0.3); Blood Urea Nitrogen 42 mg/dl (8-23); Gamma Glutamyl Transpeptidase 17 U/L (8-61); Uric Acid 4.9 mg/dL (2.5-8.0)
[2017-06-14 07:55] LABS: Band Neutrophils % 1 % (0-10); Basophils % (Manual) 1 % (0-2); Eosinophils % (Manual) 3 % (0-7); Lymphocytes % 8 % (15-49); Monocytes % (Manual) 13 % (1-12); Ovalocytes 1+ (NONE SEEN); Platelet Estimate NORMAL (NORMAL); RBC Morphology ABNORM (NORMAL); Segmented Neutrophils % 74 % (38-78)
[2017-06-14] MEDS: DOCUSATE SODIUM 100 MG CAPSULE PO SCH (08:29)
[2017-06-14] MEDS: CALCIUM ACETATE 667 MG CAPSULE PO SCH ×2 (08:29→12:56)
[2017-06-14] MEDS: GABAPENTIN 300 MG CAPSULE PO SCH (08:29)
[2017-06-14] MEDS: CALCITRIOL 0.25 MCG CAPSULE PO SCH (08:29)
[2017-06-14] MEDS: ATORVASTATIN 20 MG TABLET PO SCH (08:30)
[2017-06-14] MEDS: MULTIVIT,THER IRON,CA,FA & MIN 1 TABLET PO SCH (08:30)
[2017-06-14] MEDS: glipiZIDE 5 MG TAB.XL.24H PO SCH (08:30)
[2017-06-14] MEDS: DOXAZOSIN 4 MG TABLET PO SCH (08:30)
[2017-06-14] MEDS: SODIUM BICARBONATE 650 MG TABLET PO SCH (08:30)
[2017-06-14] MEDS: FOLIC ACID 1 MG TABLET PO SCH (08:30)
[2017-06-14] MEDS: amLODIPine 5 MG TABLET PO SCH (08:30)
[2017-06-14] MEDS: cefTRIAXone 2 GM in DEXTROSE 5% IN WATER 50 ML IV SCH (08:35)
[2017-06-14] MEDS ORDERED: LISINOPRIL 5 MG TABLET PO SCH (09:00)
--- NOTE | 2017-06-14 10:32 | Discharge Summary ---
Medical - DS: Prov Patient information: Note initiated : 06/14/17 at 10:30 am Service Date, if different from initiated Date: [] Patient: Zachary Villavicencio 82 y/o M admitted on 06/11/17 for Fever and Weakness. Chief Complaint: [] Date of admission: 06/11/17 19:47 Discharge date: 06/14/17 Primary care physician: Vimal Clark Medical - DS: Meds - Discharge Medications Prescriptions: Amoxicillin/Potassium Clav [Augmentin] 875 mg PO Q12H #10 tablet Active and Home Medications: Home Medications ascorbic acid (vitamin C) 1,000 mg tablet 1,000 mg PO QDAY tab 03/23/15 [ History Confirmed 06/12/17 Last Taken 10/23/15 10:00] folic acid 800 mcg tablet 800 mcg PO QDAY tab 03/23/15 [History Confirmed 06/12 Last Taken 10/23/15 10:00] Acetaminophen [Tylenol] 650 mg PO Q4HP PRN #0 tab 10/26/15 [Rx Confirmed Last Taken Unknown] glipizide ER 5 mg tablet, extended release 24 hr 5 mg PO QDAY 90 Days 11/02/16 [ Rx Confirmed 06/12/17 Last Taken Unknown] cholecalciferol (vitamin D3) 1,000 unit capsule 1,000 unit PO QDAY #90 cap 12/04 [Rx Confirmed 06/12/17 Last Taken Unknown] sodium bicarbonate 650 mg tablet 1,300 mg PO BID #360 tab 03/06/17 [Rx Confirmed 06/12/17 Last Taken Unknown] amlodipine 5 mg tablet 5 mg PO BID 90 Days 03/08/17 [Rx Confirmed 06/12/17 Last Taken Unknown] calcium acetate 667 mg capsule 667 mg PO TID 90 Days 03/08/17 [Rx Confirmed Last Taken Unknown] doxazosin 4 mg tablet 4 mg PO BID #180 tab 03/08/17 [Rx Confirmed 06/12/17 Last Taken Unknown] lisinopril 2.5 mg tablet 2.5 mg PO QDAY #90 tab 03/08/17 [Rx Confirmed 06/12/17 Last Taken Unknown] atorvastatin 10 mg tablet 10 mg PO QDAY 90 Days 04/26/17 [Rx Confirmed 06/12/17 Last Taken Unknown] gabapentin 600 mg tablet 600 mg PO BID 90 Days 04/26/17 [Rx Confirmed 06/12/17 Last Taken Unknown] tramadol 50 mg tablet 50 mg PO Q6HP PRN #100 tab 06/06/17 [Rx Confirmed Last Taken Unknown] Atorvastatin 10 mg PO DAILY 06/12/17 [History Confirmed 06/12/17 Last Taken Unknown] Blood Sugar Diagnostic [Contour] 0 strip .ROUTE .MEDSUPPLY 06/12/17 [History Confirmed 06/12/17 Last Taken 06/12/17] Calcitriol [Rocaltrol] 0.25 mcg PO DAILY 06/12/17 [History Confirmed 06/12/17 Last Taken Unknown] Furosemide [Lasix] 40 mg PO HS 06/12/17 [History Confirmed 06/12/17 Last Taken Unknown] Furosemide [Lasix] 80 mg PO DAILY 06/12/17 [History Confirmed 06/12/17 Last Taken Unknown] Amoxicillin/Potassium Clav [Augmentin] 875 mg PO Q12H #10 tablet 06/14/17 [Rx Last Taken Unknown] Medical - DS: Hosp Hospital course: DISCHARGE DIAGNOSIS * Sepsis- unclear source. clinically resolved. ikely secondary to complicated UTI. Negative CSF and blood cultures. CT abdomen and chest negative. * Acute change in mental status secondary to sepsis-clinically back at baseline * Complicated enterococcus UTI-discharging additional 5 days oral amoxicillin * Hypertension-anaged on calcium channel jalen * DM type II managed on basal prandial insulin * Neuropathy on gabapentin * Stage V CKD- baseline creatinine around 3.5. * Hyperlipidemia managed on statin [facility] Mr. Villavicencio is a 82 year old M who presents to [facility] ER with confusion and fever and weakness. atel's symptom started roughly 2-3 days ago with mild dysuria and shaking chills. however over the next 48 hours he is at significant change in mental status has been belligerent and very confused along with fever of 102. ost of the history was obtained from his . He did not have any shortness of breath diarrhea or photophobia but endorses to headache and myalgias. e denies flulike symptoms or ear or nose discharge. He denies sick contacts. He denies weight loss plan wrist swelling initial workup in the ER was significant for white count over 15,400. Patient underwent lumbar puncture along with CT abdomen and chest to rule out occult infectious source. 06/12-white count down to 11.7. CSF studies negative. Cultures negative so far. DC ampicillin/acyclovir. And continue Rocephin/ancomycin. Enterococci on urine culture. c. difficile negative. patient however this morning is much alert and oriented but refusing all treatments. however after discussion with staff patient finally agrees to continue treatment. Patient stable enough to be transferred to medical floor while further workup is ongoing. Overnight MAXIMUM TEMPERATURE 102 06/13- patient appears a lot better.no overnight events. No concerns per staff. Improved confusion. Denies abdominal pain nausea. No concerns per nursing staff.sitting on chair Able to walk with front-wheeled walker with assist. benton count down to 10.2. reatinine 3.8 06/14-patient doing well. No overnight events. No concerns per staff. No fever chills nausea vomiting. Feels at baseline. White count 8.2. Enterococcal UTI sensitive to penicillin. Discharge in an additional 5 days of Augmentin. Instructions as below Discharge diagnosis: nterococcal UTI - Time Spent with Patient Total time spent providing and/or coordinating discharge services: Greater than 30 minutes Medical - DS: Exam - Constitutional Vitals: Vital Signs Temp Pulse Resp BP BP Pulse Ox 06/14/17 07:19 65 16 99 06/14/17 07:18 97.8 F 65 16 183/76 99 06/14/17 04:00 97.9 F 60 18 159/63 98 06/13/17 23:58 98.5 F 65 16 169/69 96 06/13/17 19:54 97.2 F 75 18 169/74 98 06/13/17 16:00 98.3 F 22 153/75 98 06/13/17 11:43 98.3 F 22 160/77 97 Intake and Output 06/13/17 06/14/17 06/14/17 21:59 05:59 13:59 Intake Total 2029 2130 / 2130 180 / 180 Output Total 1079 / 1079 426 / 426 276 / 276 Balance 951 / 951 1704 / 1704 -96 / -96 Intake: IV 1000 / 1000 Sodium Chloride 0.9% 1, 1000 / 1000 000 ml @ 50 mls/hr IV . Q20H [facility] Rx#:[id number] Oral 2029 1130 / 1130 180 / 180 Output: Urine Catheter Amount 275 / 275 Void Amount 1075 / 1075 425 / 425 # of times incontinent of 4 / 4 urine Other: Meal Dinner Breakfast Percent of Meal Consumed 100% 100% Feeding Ability Independent Independent # Voids 1 # Bowel Movements 1 1 Weight 224 lb Medical - DS: Data Labs on day of discharge: Labs from last 24 hours 06/14/17 06/14/17 06/14/17 05:56 05:56 05:56 WBC 8.2 RBC 2.85 L Hgb 8.8 L Hct 26.3 L MCV 92.4 MCH 30.9 MCHC 33.5 RDW 14.4 Plt Count 215 MPV 7.4 Total Counted 100 Seg Neutrophils % 74 Band Neutrophils % 1 Lymphocytes % 8 L Monocytes % (Manual) 13 H Eosinophils % (Manual) 3 Basophils % (Manual) 1 Platelet Estimate Normal RBC Morphology Abnorm A Ovalocytes 1+ A Sodium 136 Potassium 4.1 Chloride 106 Carbon Dioxide 17 L Anion Gap 13.0 BUN 42 H Creatinine 3.4 H GFR Calculation 16 Glucose 125 H Uric Acid 4.9 Calcium 8.9 Phosphorus 3.6 Magnesium 2.0 Total Bilirubin 0.2 Direct Bilirubin < 0.2 GGT 17 AST 17 ALT 22 Alkaline Phosphatase 65 Lactate Dehydrogenase 182 Total Protein 6.3 Albumin 3.1 L Globulin 3.2 Albumin/Globulin Ratio 1.0 Triglycerides 77 Random Vancomycin 18.0 H Vancomycin Dose Not Reportable Vanco Last Dose Time Not Reportable Medical - DS: A/P - Patient/Caregiver Discharge Instructions Activity: increase activity as tolerated Diet: Renal/Consistent Carbs Additional Instructions: Follow-up PCP in 5 days follow-up nephrology as scheduled for management of chronic kidney disease I recommend SNF physician to check CBC BMP n 1 week Antibiotics for additional 5 dayss Continue aggressive bowel regimen to prevent constipation Continue fall precautions Continue home health PT OT All meals on chair sitting upright at 90 degrees to prevent aspiration Return to ER if worsening fever chills shortness of breath, diarrhea, bleeding Review risk and side effect profile of medications including antibiotics. Side effect may include mild to severe reaction including rash, diarrhea, cdiff and even which can be prevented by close follow-up with PCP and monitoring for side effects Refrain from smoking and alcohol Continue consistent carbohydrate diet and activity as advised Discussed importance of medication adherence Please review medication list with patient prior to discharge Please schedule follow-up with PCP/Providers prior to discharge and provide printouts Portions of this chart may have been created with NPTV voice recognition software. Occasional wrong-word or ?sound-like? substitutions may have occurred due to the inherent limitations of voice recognition software. Please read the chart carefully and recognize, using context, where the substitutions have occurred. CC- PCP Prescriptions: Amoxicillin/Potassium Clav [Augmentin] 875 mg PO Q12H #10 tablet - Follow up Plan Follow up with: Vimal Clark PA-C [Primary Care Provider] - 06/20/17 2:00 pm Disposition: Home Health Service Prognosis: Serious Rehab Potential: Fair I certify that the patient requires SNF services: No Overall status at discharge: patient is progressing back to baseline Medical - DS: Qual - VTE Deep Vein Thrombosis/Pulmonary Embolism Present on Admission: No
[2017-06-14] MEDS ORDERED: FUROSEMIDE 40 MG TABLET PO SCH (15:00)
[2017-06-14] MEDS ORDERED: VANCOMYCIN 1,500 MG in 0.9 % SODIUM CHLORIDE 500 ML IV ONE (16:00)
== END 2017-06-14 14:25 | disposition home health service (06) | DRG 871 ==
LOC: ED 15:17 → ICU 19:45 → MEDSUR 06-12 12:09
PROVIDERS: ADMIT Internal Medicine; ATTEND Internal Medicine

== ENCOUNTER 2019-08-29 11:15 | Inpatient (IN) ==
--- NOTE | 2019-08-29 11:27 | Emergency Department Note ---
Weakness HPI - General Chief complaint: Weakness Stated complaint: weakness Time Seen by Provider: 08/29/19 11:22 Source: patient Mode of arrival: wheelchair Limitations: no limitations - History of Present Illness HPI Narrative: 84-year-old comes in by EMS due to weakness and falls. He is having difficulty standing. He is fallen so many times he does not know exactly when it was but he has developed right knee and thigh discomforts. He gets home peritoneal dialysis related to renal failure related to nephrectomy due to an renal cancer. His strength in his legs is just seem to go down and he does not have a specific explanation. He is generally wheelchair-bound and no longer can able to walk. He has been wheelchair-bound for a significant period of time. His has Parkinson's and is no longer able to care for him. The dialysis nurse at one point was looking at placement considerations for him and it sounded like the only place that she could find that would take him was a assisted in [place] and he will not go there due to concerns of quality of care. He has [facility] benefits but they will not accept him because of the dialysis. He does not have a solution to his quandary of not being able to find a place to go nor been able to be at home any longer. Review of systems: No fever, chills, sweats, chest pain, cough, shortness of breath, abdominal pain, nausea, vomiting. He has coming and going diarrhea/constipation. No dy suria frequency or urgency but he has nocturnal incontinence. No dizziness but feels weakness all over. No anxiety or depression. - Related Data Home Medications Medication Instructions Recorded Confirmed ascorbic acid (vitamin C) 1,000 mg 1,000 mg PO QDAY tab 03/23/15 08/29/19 tablet folic acid 800 mcg tablet 800 mcg PO QDAY tab 03/23/15 06/23/19 Blood Sugar Diagnostic [Contour 0 strip .ROUTE .MEDSUPPLY 06/12/17 06/23/19 Test Strip] Calcitriol [Rocaltrol] 0.25 mcg PO DAILY 06/12/17 08/29/19 Previous Rx's Medication Instructions Recorded cholecalciferol (vitamin D3) 1,000 1,000 unit PO QDAY #90 cap 12/04/16 unit capsule B complex 11-folic acid 1 mg-C 100 1 tab PO QDAY #30 tab 10/30/17 mg-biotin 300 mcg-zinc 50 mg tablet lidocaine-prilocaine 2.5 %-2.5 % See Rx Instructions .ROUTE 10/30/17 topical cream .COMPLEX #30 g sevelamer carbonate 800 mg tablet 800 mg PO TID #90 tab 12/16/17 hydroxyzine HCl 10 mg tablet 10 mg PO QHS PRN #30 tab 06/16/18 blood sugar diagnostic See Dose Instructions .ROUTE 11/25/18 .MEDSUPPLY #100 each atorvastatin 10 mg tablet 10 mg PO QDAY #90 tab 02/17/19 doxazosin 4 mg tablet 4 mg PO BID #180 tab 03/16/19 sodium bicarbonate 650 mg tablet 1,300 mg PO BID #360 tab 03/16/19 losartan 100 mg tablet 100 mg PO QDAY #90 tab 06/11/19 sulfamethoxazole 800 1 tab PO BID #14 tab 06/15/19 mg-trimethoprim 160 mg tablet lancets See Dose Instructions .ROUTE 06/29/19 .MEDSUPPLY #102 each bumetanide 2 mg tablet 4 mg PO QAM #180 tab 07/20/19 gabapentin 300 mg capsule 300 mg PO QHS #90 cap 07/23/19 amlodipine 5 mg tablet 5 mg PO QDAY #90 tab 07/31/19 insulin glargine U-300 conc 300 See Rx Instructions SUB-Q .COMPLEX 08/11/19 unit/mL (1.5 mL) subcutaneous pen #4.5 ml insulin lispro 100) 100 unit/mL 7 unit SUB-Q TID #15 ml 08/11/19 subcutaneous pen oxyCODONE HCL [Oxycodone HCl] 5 mg PO Q4HP PRN #12 tab 08/29/19 Allergies Allergy/AdvReac Type Severity Reaction Status Date / Time hydrocodone Allergy Unknown Unknown Verified 08/29/19 11:21 Past Medical History - Past Medical History [facility] Narrative: Medical History (Last Updated 08/29/19 @ 11:59 by Austin Jain DO) Diabetes mellitus, type II (Chronic) Type 2 diabetes mellitus (Chronic) CAD (coronary artery disease) (Chronic) Chronic kidney disease (CKD), stage IV (severe) (Chronic 08/05/12) Hyperparathyroidism, secondary renal (Chronic) Peritoneal dialysis status (Chronic) Anemia in chronic kidney disease (Chronic) Peripheral neuropathy (Chronic) Monoclonal gammopathy of undetermined significance (Chronic) Sleep apnea, obstructive (Chronic) Renal cell carcinoma (Resolved) Hyperlipidemia (Chronic) Hypertension, essential (Chronic) Osteoarthritis of right hip (Chronic) Acute retention of urine (Resolved) Secondary hyperparathyroidism of renal origin (Chronic) DVT prophylaxis (Chronic) Hypertensive renal disease (Chronic) Metabolic acidosis (Chronic) History of blood transfusion (Chronic) 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) Low back pain (Chronic) Herpes simplex (Chronic) Cervical disc disease (Chronic 12/02/13) 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) Atypical chest pain (Resolved) Community acquired pneumonia (Resolved) Fever of unknown origin (Resolved) LLQ abdominal pain (Resolved) Sepsis (Resolved) Urinary tract infection (Resolved) Past Surgical History (Last Updated 08/29/19 @ 11:25 by Austin Jain DO) History of cardiac cath (Chronic) History of cataract surgery (Chronic) History of colonoscopy (Chronic) History of esophagogastroduodenoscopy (Chronic 10/29/14) History of hip replacement (Chronic) History of nephrectomy (Chronic 12/12/11) History of surgery (Chronic 01/31/17) History of transurethral resection of prostate (Chronic) Status post laparoscopic hernia repair (Chronic 11/05/17) Family History (Last Reviewed 12/18/18 @ 13:29 by Lia Gaspar PA-C) Mother Malignant neoplasm of urinary bladder, Onset Age: 85 Essential hypertension Father Cardiac disease, Onset Age: 30 Sister Malignant neoplasm of urinary bladder, Onset Age: 73 Medical history: Reports: arthritis, DM, hyperlipidemia, hypertension, renal disease, other Psychiatric history: Denies: anxiety, depression Surgical history ED: Reports: cataract, hip replacement, other (Nephrectomy, TURP) - Social History smoking status: Never smoker Alcohol use: Reports: None Drug use: Reports: none. Denies: marijuana Physical Exam Limitations: physical limitation General appearance: alert, in no apparent distress Head: atraumatic, normocephalic Eye: Present: normal appearance, PERRL (Minimally), EOMI, other (Intraocular lenses). Absent: scleral icterus, conjunctival injection ENT: Present: mucous membranes dry, other (Midline tongue and uvula) Neck: Present: trachea midline. Absent: lymphadenopathy, thyromegaly Chest: Present: symmetric chest wall rise Respiratory: Present: normal lung sounds bilaterally. Absent: respiratory distress, wheezes, stridor, accessory muscle use, prolonged expiratory phase Cardiovascular: Present: regular rate, normal rhythm, +S1 (S1 is very soft and possible murmur). Absent: systolic murmur, diastolic murmur Abdominal: Present: soft. Absent: distention, tenderness, guarding, rebound, rigidity, organomegaly, mass Extremities: Present: pedal edema (1/4 bilateral), pretibial edema (Trace-1/4 bilateral). Absent: cyanosis, clubbing Neurological: Present: alert, oriented X3 Psychiatric: Present: normal affect, normal mood Course Vital Signs Temperature 96.8 F L 08/29/19 11:16 Pulse Rate 65 08/29/19 11:16 Respiratory Rate 17 08/29/19 11:16 Blood Pressure 201/75 08/29/19 11:16 Pulse Oximetry (%) 99 08/29/19 11:16 Temperature 96.8 F L 08/29/19 11:16 Pulse Rate 63 08/29/19 14:17 Respiratory Rate 16 08/29/19 15:46 Blood Pressure 148/71 08/29/19 15:46 Pulse Oximetry (%) 97 08/29/19 14:17 Weakness - MDM Narrative Medical decision making narrative: Multiple falls and increasing weakness. Will do cardiac and multiple other labs and work-up. Home self-care deficit difficulties is also a primary concern. Will image also the right lower extremity knee and hip and femur. 11:55 AM - EKG demonstrates nonspecific flattening of the ST segments in the limb leads. Otherwise unremarkable. No acute coronary syndrome findings. - Lab Data Result diagrams: 08/29/19 12:15 08/29/19 12:15 Lab Results 08/29/19 08/29/19 08/29/19 Range/Units 12:15 12:15 12:15 WBC 9.3 (4.5-11.0) K/mcL RBC 3.35 L (4.50-5.90) M/mcL Hgb 10.2 L (13.5-16.5) g/dL Hct 30.3 L (41.0-55.0) % MCV 90.4 (80.0-100.0) fL MCH 30.5 (26.0-34.0) pg MCHC 33.7 (31.0-36.0) g/dL RDW 13.3 (11.5-14.5) % Plt Count 238 (140-440) K/mcL MPV 8.5 (7.4-10.4) fL Gran % 76.1 (38.0-78.0) % Lymph % (Auto) 11.7 L (15.5-49.0) % [place] % (Auto) 9.1 (1.0-12.0) % Eos % (Auto) 2.6 (0.0-7.0) % Baso % (Auto) 0.5 (0.0-2.0) % Gran # 7.2 (1.8-8.0) K/mcL Lymph # (Auto) 1.1 L (1.5-4.8) K/mcL [place] # (Auto) 0.8 (0.1-0.9) K/mcL Eos # (Auto) 0.2 (0.0-0.7) K/mcL Baso # (Auto) 0 (0.0-0.3) K/mcL Sodium 139 (133-145) mmol/L Potassium 4.0 (3.3-5.1) mmol/L Chloride 101 (96-108) mmol/L Carbon Dioxide 21 L (22-30) mmol/L Anion Gap 17.0 H (8-16) BUN 46 H (8-23) mg/dl Creatinine 6.9 H* (0.7-1.2) mg/dl GFR Calculation 7 Glucose 158 H (70-105) mg/dL Calcium 8.6 (8.6-10.4) mg/dl Total Bilirubin 0.3 (0.0-1.0) mg/dL AST 10 (0-37) U/l ALT 10 (0-40) U/l Alkaline Phosphatase 73 (39-117) U/L Troponin T 0.10 H* (0-0.03) ng/ml C-Reactive Protein 2.3 H (0.0-0.8) mg/dl NT-Pro-B Natriuret Pep 7572.0 H (0-450) pg/ml Total Protein 6.7 (5.9-8.4) gm/dL Albumin 3.4 (3.2-5.2) gm/dL Globulin 3.3 (2.2-3.7) gm/dL Albumin/Globulin Ratio 1.0 (1.0-2.3) Disposition Pt seen by UROLOGIST/PA only: No Clinical Impression: Weakness, Falls frequently, Edema, peripheral, Potential for self care deficit, Chronic renal failure, stage 5 Strain of right knee and leg Qualifiers: Encounter type: initial encounter Qualified Code(s): S86.911A - Strain of un specified muscle(s) and tendon(s) at lower leg level, right leg, initial encounter Fracture of second toe, right, closed Qualifiers: Encounter type: initial encounter Qualified Code(s): S92.501A - Displaced unspecified fracture of right lesser toe(s), initial encounter for closed fracture Summary: Patient is advised of his toe fracture and he does not want anybody taping or other taping. His right knee injury/strain or hip can be treated with additional pain medication for him. Hopefully he can do more home dialysis. He has not done as well the past several nights due to pain. He has to lay on his left side for his dialysis but was not able to tolerate this fully due to his pain. He does not have additional or other pain medications at home other than He states he used 1 of his 's pain medicines and it may have helped a little bit. 2:16 PM - He refuses admission for dialysis or other treatment. He recognizes that he is at high risk for falls including with pain medicines on board. He is not afraid to continue to fall or have other complications but insists on returning home. He admits to sleep apnea and uses his CPAP regularly. He will be discharged and helped to get home but he is certainly at high risk. I also spoke with Sushila, around 2:10 PM, who also spoke with Mary, case sealer. Recommendation was for patient to not go home that he was significant high risk, etc. Pt has refused. ADDENDUM: This afternoon reportedly patient's has declined to accept him back into the home and that she has difficulties caring for him. Patient denies that this is the exact circumstance just that he is convinced that he does need to stay. Apparently the patient's daughter called him and convinced him that he did need to stay. 3:48 PM - I spoke with head char filter tank tender, Dr. May, who called back after a few minutes to report that there is a peritoneal dialysis nurse in town and willing to help with the peritoneal dialysis. She agrees that this can be done and should be done given his creatinine of 6.9 but points out his normal potassium of 4.0 and bicarb of 21. 4:16 PM - I spoke with Dr. Myles, hospitalist, is willing to see patient and accept care. Patient is being admitted because of acute on chronic renal failure, weakness, multiple falls, right lower extremity pain. Disposition: Left Against Medical Advice Condition: Serious Instructions: Oxycodone, Rapid Release (By mouth) Additional Instructions: Be extremely careful with your pain medicine as it may cause dizziness, sedation, difficulties breathing, and constipation. It may easily contribute to a risk of falling. It is not well known how well this medication comes out of your system with your type of dialysis so it may accumulate so you will have to be very careful. Trying to figure out your long-term plan and coordinating care as you are having extreme difficulties being able to do so for yourself as your is limited in abilities, is certainly an important and urgent issue to consider. Consider further discussing this with the discharge planners and social workers. RETURN TO ER IF YOU HAVE IMPORTANT SYMPTOMS OR FINDINGS SUCH SIGNIFICANT OR MAJOR: -- abdominal pain -- chest pain -- shortness of breath -- bleeding -- unexplained fever -- unexplained weakness or numbness of one side of your body, difficulty speaking, or sudden loss of vision (stroke symptoms) -- sudden new "thunderclap" headache, OR other significant problems or symptoms. Prescriptions: oxyCODONE HCL [Oxycodone HCl] 5 mg PO Q4HP PRN #12 tab PRN Reason: Pain Prescription Printed Referrals: Vimal Clark PA-C [Primary Care Provider] - Forms: Left Against Medical Advice
[2019-08-29 13:01] LABS: Basophils # (Auto) 0 K/mcL (0.0-0.3); Basophils % (Auto) 0.5 % (0.0-2.0); Eosinophils # (Auto) 0.2 K/mcL (0.0-0.7); Eosinophils % (Auto) 2.6 % (0.0-7.0); Granulocytes % (Auto) 76.1 % (38.0-78.0); Hematocrit 30.3 % (41.0-55.0); Hemoglobin 10.2 g/dL (13.5-16.5); Lymphocytes # (Auto) 1.1 K/mcL (1.5-4.8); Lymphocytes % (Auto) 11.7 % (15.5-49.0); Mean Cell Volume 90.4 fL (80.0-100.0); Mean Corpuscular HGB Conc 33.7 g/dL (31.0-36.0); Mean Platelet Volume 8.5 fL (7.4-10.4); Monocytes # (Auto) 0.8 K/mcL (0.1-0.9); Monocytes % (Auto) 9.1 % (1.0-12.0); Platelet Count 238 K/mcL (140-440); RBC 3.35 M/mcL (4.50-5.90); Red Cell Distribution Width 13.3 % (11.5-14.5); WBC 9.3 K/mcL (4.5-11.0)
[2019-08-29 13:04] LABS: ALT/SGPT 10 U/l (0-40); AST/SGOT 10 U/l (0-37); Albumin 3.4 gm/dL (3.2-5.2); Alkaline Phosphatase 73 U/L (39-117); Bilirubin,Total 0.3 mg/dL (0.0-1.0); Blood Urea Nitrogen 46 mg/dl (8-23); C-Reactive Protein 2.3 mg/dl (0.0-0.8); Calcium 8.6 mg/dl (8.6-10.4); Carbon Dioxide 21 mmol/L (22-30); Chloride 101 mmol/L (96-108); Globulin 3.3 gm/dL (2.2-3.7); Glomerular Filtration Rate 7; Glucose 158 mg/dL (70-105)
--- NOTE | 2019-08-29 14:47 | XRay Report ---
CLINICAL INFORMATION: Trauma COMPARISON: None. FINDINGS: Moderate diffuse osteoporosis noted. No fracture appreciated. Mild degenerative changes present in the interphalangeal joints. First digit soft tissue swelling noted. There is atherosclerotic calcification present in the digital arteries IMPRESSION: No fracture appreciated. Other chronic findings as described Interpreted and Authenticated by: Javier Chambers 08/29/19
--- NOTE | 2019-08-29 14:53 | XRay Report ---
CLINICAL INFORMATION: multiple falls; edema COMPARISON: 06/11/2019 FINDINGS: Mild cardiomegaly is unchanged. Mediastinum and pulmonary vessels are normal. Moderate region of atelectasis or infiltrate in the left lower lobe appreciated (in the retrocardiac region, there is increased density with air bronchograms). No evidence of pneumo or hemothorax. Ribs are grossly normal IMPRESSION: No posttraumatic change. Moderate region of atelectasis or infiltrate in the left lower lobe Interpreted and Authenticated by: Javier Chambers 08/29/19
--- NOTE | 2019-08-29 16:35 | Internal Med History&Physical ---
Medical - H&P: [facility] Patient information: Note initiated : 08/29/19 at 4:32 pm Service Date, if different from initiated Date: [] Patient: Zachary Villavicencio 84 y/o M admitted on for weakness. Chief Complaint: [] History of present illness: Mr. Villavicencio is a 84 year old M Presents the ED sent in by his because he is been progressively weak. Patient states he is fallen multiple times lately. These falls occur when he he is standing and transitioning from toilet to wheelchair or standing to get on his pants. He says he cannot stand very long before he gets weak and falls down. He states is been wheelchair-bound for about a year, and he is able to transfer self, but has not even tried to walk with a walker for long time. is Parkinson's and has a difficult time taking care of him and has her own medical issues. Placement has tried to be pursued with him in the past but the [facility] will not [facility] because she is a dialysis patient and then he refused to go to [facility]. He denies any acute complaints other than feeling weak. Denies any chest pain shortness of breath, denies any respiratory issues or abdominal pain. In the ED vitals were stable other than initial high blood pressure which resolved on its own. His creatinine is 6.9 and he is a peritoneal dialysis patient. Case was discussed with Dr. Roberts. No recent illnesses. Review of Systems: Pertinent positives as above. Denies heada clif[place]/fever/chills/nausea/vomiting/chest or abdominal pain/cough/dyspnea/diarrhea. Many 10 point review of system reviewed negative Medical - H&P: [facility] Medical history: Medical History (Last Updated 08/29/19 @ 11:59 by Austin Jain DO) Diabetes mellitus, type II (Chronic) Type 2 diabetes mellitus (Chronic) CAD (coronary artery disease) (Chronic) Chronic kidney disease (CKD), stage IV (severe) (Chronic 08/05/12) Hyperparathyroidism, secondary renal (Chronic) Peritoneal dialysis status (Chronic) Anemia in chronic kidney disease (Chronic) Peripheral neuropathy (Chronic) Monoclonal gammopathy of undetermined significance (Chronic) Sleep apnea, obstructive (Chronic) Renal cell carcinoma (Resolved) Hyperlipidemia (Chronic) Hypertension, essential (Chronic) Osteoarthritis of right hip (Chronic) Acute retention of urine (Resolved) Secondary hyperparathyroidism of renal origin (Chronic) DVT prophylaxis (Chronic) Hypertensive renal disease (Chronic) Metabolic acidosis (Chronic) History of blood transfusion (Chronic) 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) Low back pain (Chronic) Herpes simplex (Chronic) Cervical disc disease (Chronic 12/02/13) 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) Atypical chest pain (Resolved) Community acquired pneumonia (Resolved) Fever of unknown origin (Resolved) LLQ abdominal pain (Resolved) Sepsis (Resolved) Urinary tract infection (Resolved) Past Surgical History (Last Updated 08/29/19 @ 11:25 by Austin Jain DO) History of cardiac cath (Chronic) History of cataract surgery (Chronic) History of colonoscopy (Chronic) History of esophagogastroduodenoscopy (Chronic 10/29/14) History of hip replacement (Chronic) History of nephrectomy (Chronic 12/12/11) History of surgery (Chronic 01/31/17) History of transurethral resection of prostate (Chronic) Status post laparoscopic hernia repair (Chronic 11/05/17) Family History (Last Reviewed 12/18/18 @ 13:29 by Lia Gaspar PA-C) Mother Malignant neoplasm of urinary bladder, Onset Age: 85 Essential hypertension Father Cardiac disease, Onset Age: 30 Sister Malignant neoplasm of urinary bladder, Onset Age: 73 Social History (Last Updated 07/13/19 @ 07:44 by Vimal Clark PA-C) Patient denies tobacco or alcohol Is wheelchair-bound and has been so for a year Lives with his at home who has Parkinson's Medical - H&P: Meds Home Medications Medication Instructions Recorded Confirmed Type ascorbic acid (vitamin C) 1,000 mg 1,000 mg PO QDAY tab 03/23/15 08/29/19 History tablet folic acid 800 mcg tablet 800 mcg PO QDAY tab 03/23/15 06/23/19 History cholecalciferol (vitamin D3) 1,000 1,000 unit PO QDAY #90 cap 12/04/16 08/29/19 Rx unit capsule Blood Sugar Diagnostic [Contour 0 strip .ROUTE .MEDSUPPLY 06/12/17 06/23/19 History Test Strip] Calcitriol [Rocaltrol] 0.25 mcg PO DAILY 06/12/17 08/29/19 History B complex 11-folic acid 1 mg-C 100 1 tab PO QDAY #30 tab 10/30/17 06/23/19 Rx mg-biotin 300 mcg-zinc 50 mg tablet lidocaine-prilocaine 2.5 %-2.5 % See Rx Instructions .ROUTE 10/30/17 06/23/19 Rx topical cream .COMPLEX #30 g sevelamer carbonate 800 mg tablet 800 mg PO TID #90 tab 12/16/17 06/23/19 Rx hydroxyzine HCl 10 mg tablet 10 mg PO QHS PRN #30 tab 06/16/18 06/23/19 Rx blood sugar diagnostic See Dose Instructions .ROUTE 11/25/18 06/23/19 Rx .MEDSUPPLY #100 each atorvastatin 10 mg tablet 10 mg PO QDAY #90 tab 02/17/19 06/23/19 Rx doxazosin 4 mg tablet 4 mg PO BID #180 tab 03/16/19 08/29/19 Rx sodium bicarbonate 650 mg tablet 1,300 mg PO BID #360 tab 03/16/19 06/23/19 Rx losartan 100 mg tablet 100 mg PO QDAY #90 tab 06/11/19 08/29/19 Rx sulfamethoxazole 800 1 tab PO BID #14 tab 06/15/19 06/23/19 Rx mg-trimethoprim 160 mg tablet lancets See Dose Instructions .ROUTE 06/29/19 Rx .MEDSUPPLY #102 each bumetanide 2 mg tablet 4 mg PO QAM #180 tab 07/20/19 08/29/19 Rx gabapentin 300 mg capsule 300 mg PO QHS #90 cap 07/23/19 Rx amlodipine 5 mg tablet 5 mg PO QDAY #90 tab 07/31/19 08/29/19 Rx insulin glargine U-300 conc 300 See Rx Instructions SUB-Q .COMPLEX 08/11/19 Rx unit/mL (1.5 mL) subcutaneous pen #4.5 ml insulin lispro 100) 100 unit/mL 7 unit SUB-Q TID #15 ml 08/11/19 08/29/19 Rx subcutaneous pen oxyCODONE HCL [Oxycodone HCl] 5 mg PO Q4HP PRN #12 tab 08/29/19 Rx Allergies Allergy/AdvReac Type Severity Reaction Status Date / Time hydrocodone Allergy Unknown Unknown Verified 08/29/19 11:21 Medical - H&P: Exam - Constitutional Vitals: Temp Pulse Resp BP Pulse Ox 96.8 F L 63 14 171/77 97 08/29/19 11:16 08/29/19 14:17 08/29/19 16:16 08/29/19 16:16 08/29/19 14:17 Exam: General: Alert, Awake, No acute Distress Eyes/N/T: EOMI, PEERL, Head/Neck: neck supple, normocephalic atraumatic CV: RRR, 1/6 SM, normal s1/s2 Pulm: Clear b/l, no wheezing/rhonchi/rales Abd: soft, nontender, +BS x4 Ext: no clubbing/cyanosis, 3+ b/l LE edema Neuro: Alert, no focal deficits, moves all extremities, CN 2-12 grossly intact, symmetrical strength b/l upper/lower, sensations intact b/l upper/lower Skin: warm/dry Medical - H&P: Reslt - Labs CBC & Chem 7: 08/29/19 12:15 08/29/19 12:15 Labs: Short CBC 08/29/19 Range/Units 12:15 WBC 9.3 (4.5-11.0) K/mcL Hgb 10.2 L (13.5-16.5) g/dL Hct 30.3 L (41.0-55.0) % Plt Count 238 (140-440) K/mcL BMP 08/29/19 12:15 Sodium 139 Potassium 4.0 Chloride 101 Carbon Dioxide 21 L BUN 46 H Creatinine 6.9 H* Glucose 158 H Calcium 8.6 Cardiac Enzymes 08/29/19 Range/Units 12:15 Troponin T 0.10 H* (0-0.03) ng/ml Liver Function 08/29/19 Range/Units 12:15 Total Bilirubin 0.3 (0.0-1.0) mg/dL AST 10 (0-37) U/l ALT 10 (0-40) U/l Alkaline Phosphatase 73 (39-117) U/L Albumin 3.4 (3.2-5.2) gm/dL - Impressions Chest x-ray with atelectasis Toe x-ray with a small fracture right second digit middle phalanx Medical - H&P: A/P - Narrative A/P Narrative: A: *Generalized weakness/deconditioning/debility/failure to thrive: -There have been attempts in the past to get him to a care facility *Fallin/2 above *Renal failure, on PD: *Anemia, chronic: *DM w/neuropathy: *HTN/HLD: *BPH: *Atelectasis: P: -Nephrology for dialysis -pt/ot -CM for placement -cont home norvasc/ARB/Bumex -SSI, basal insulin -IS -ppx: heparin DNR
--- NOTE | 2019-08-29 17:03 | Nephrology Consult Note ---
History of Present Illness - Reason for Consult Patient information: Note initiated : 08/29/19 at 5:02 pm Service Date, if different from initiated Date: [] Patient: Zachary Villavicencio 84 y/o M admitted on for weakness. Chief Complaint: [] - Chief Complaint falls - History of Present Illness Mr. Villavicencio is a 84 year old M with HTN, ESRD, generalized weakness, failure to thrive, who was sent to the ED by his because of progressive weakness. He has fallen so many times he cannot recall the number. He depends on his (who has parkinson) to help with his peritoneal dialysis. He cannot stand for long and has been using a wheelchair. He is skeptical about going on hemodialysis as he does not like needles. Placement to a facility was not possible as he did not want to consider HD in the past. ROS: as above; falls, weakness, inability to care for self, bilateral lower extremity swelling, decreased urinary output. denies: nausea, vomiting, SOB, cough, fever, chills, CP. Review of Systems Respiratory: no cough, no dyspnea Gastrointestinal: no nausea Neurological: frequent falls, weakness Past History Past medical history: Medical History (Last Updated 08/29/19 @ 11:59 by Austin Jain DO) Diabetes mellitus, type II (Chronic) Type 2 diabetes mellitus (Chronic) CAD (coronary artery disease) (Chronic) Chronic kidney disease (CKD), stage IV (severe) (Chronic 08/05/12) Hyperparathyroidism, secondary renal (Chronic) Peritoneal dialysis status (Chronic) Anemia in chronic kidney disease (Chronic) Peripheral neuropathy (Chronic) Monoclonal gammopathy of undetermined significance (Chronic) Sleep apnea, obstructive (Chronic) Renal cell carcinoma (Resolved) Hyperlipidemia (Chronic) Hypertension, essential (Chronic) Osteoarthritis of right hip (Chronic) Acute retention of urine (Resolved) Secondary hyperparathyroidism of renal origin (Chronic) DVT prophylaxis (Chronic) Hypertensive renal disease (Chronic) Metabolic acidosis (Chronic) History of blood transfusion (Chronic) 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) Low back pain (Chronic) Herpes simplex (Chronic) Cervical disc disease (Chronic 12/02/13) 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) Atypical chest pain (Resolved) Community acquired pneumonia (Resolved) Fever of unknown origin (Resolved) LLQ abdominal pain (Resolved) Sepsis (Resolved) Urinary tract infection (Resolved) Past surgical history: Past Surgical History (Last Updated 08/29/19 @ 11:25 by Austin Jain DO) History of cardiac cath (Chronic) History of cataract surgery (Chronic) History of colonoscopy (Chronic) History of esophagogastroduodenoscopy (Chronic 10/29/14) History of hip replacement (Chronic) History of nephrectomy (Chronic 12/12/11) History of surgery (Chronic 01/31/17) History of transurethral resection of prostate (Chronic) Status post laparoscopic hernia repair (Chronic 11/05/17) Past family history: Family History (Last Reviewed 12/18/18 @ 13:29 by Lia Gaspar PA-C) Mother Malignant neoplasm of urinary bladder, Onset Age: 85 Essential hypertension Father Cardiac disease, Onset Age: 30 Sister Malignant neoplasm of urinary bladder, Onset Age: 73 Past social history: Social History (Last Updated 07/13/19 @ 07:44 by Vimal Clark PA-C) No Social History Section defined Medications and Allergies Home Medications Medication Instructions Recorded Confirmed Type Blood Sugar Diagnostic [Contour 1 strip .ROUTE .MEDSUPPLY 06/12/17 08/29/19 History Test Strip] Calcitriol [Rocaltrol] 0.25 mcg PO MOWEFR 06/12/17 08/29/19 History sevelamer carbonate 800 mg tablet 800 mg PO TID #90 tab 12/16/17 08/29/19 Rx atorvastatin 10 mg tablet 10 mg PO QDAY #90 tab 02/17/19 08/29/19 Rx doxazosin 4 mg tablet 4 mg PO BID #180 tab 03/16/19 08/29/19 Rx sodium bicarbonate 650 mg tablet 1,300 mg PO BID #360 tab 03/16/19 08/29/19 Rx losartan 100 mg tablet 100 mg PO QDAY #90 tab 06/11/19 08/29/19 Rx bumetanide 2 mg tablet 4 mg PO QAM #180 tab 07/20/19 08/29/19 Rx gabapentin 300 mg capsule 300 mg PO QHS #90 cap 07/23/19 08/30/19 Rx insulin glargine U-300 conc 300 See Rx Instructions SUB-Q .COMPLEX 08/11/19 08/29/19 Rx unit/mL (1.5 mL) subcutaneous pen #4.5 ml insulin lispro 100) 100 unit/mL 7 unit SUB-Q TID #15 ml 08/11/19 08/29/19 Rx subcutaneous pen Ascorbic Acid [Vitamin C with Donna 500 mg PO DAILY 08/29/19 08/29/19 History Hips] Calcium Acetate [Phoslo] 1,334 mg PO BIDPC 08/29/19 08/30/19 History Cholecalciferol (Vitamin D3) [D3 2,000 unit PO DAILY 08/29/19 08/29/19 History Dots] Cinacalcet [Sensipar] 60 mg PO QAMCC 08/29/19 08/30/19 History Docusate Sodium [Colace] 100 mg PO TIDP PRN 08/29/19 08/30/19 History Gentamicin Crm 0.1% 1 dose TOPICAL DAILY 08/29/19 08/30/19 History Lancets See Dose Instructions each .ROUTE 08/29/19 08/29/19 History .MEDSUPPLY Multivitamin [One-Daily 1 each PO DAILY 08/29/19 08/30/19 History Multi-Vitamin] amLODIPine [Norvasc] 5 mg PO DAILY 08/29/19 08/29/19 History glipiZIDE [Glipizide ER] 10 mg PO BIDCC 08/29/19 08/30/19 History traMADol HCL/ACETAMINOPHEN 1 each PO Q12HP PRN 08/29/19 08/30/19 History [Ultracet Tablet] Allergies Allergy/AdvReac Type Severity Reaction Status Date / Time hydrocodone AdvReac Mild Hallucinati Verified 08/29/19 19:35 ng Exam - Vital Signs Vital signs: Temp Pulse Resp BP Pulse Ox 36.0 C L 63 14 171/77 97 08/29/19 11:16 08/29/19 14:17 08/29/19 16:16 08/29/19 16:16 08/29/19 14:17 - General Appearance General appearance: well-developed, well-nourished, appears started age Neck: no thyromegaly, supple Respiratory: kyphosis Cardiology: no rub, no gallops, edema, normal S1, normal S2 Gastrointestinal: normoactive bowel sounds, no tenderness Integumentary: warm and dry Neurologic: alert and oriented x3 Musculoskeletal: no erythema, no cyanosis, no clubbing Psychiatric: mood/affect appropriate, cooperative Results - Lab Results 08/30/19 04:22 08/30/19 04:22 Most recent lab results Calcium 8.6 mg/dl (8.6-10.4) 08/29/19 12:15 Assessment and Plan (1) ESRD (end stage renal disease) on dialysis Status: Chronic Priority: Medium - Narrative A/P Narrative: continue PD 2.5% dextrose x5 cycles, 2.2L per fill, 90% tidal, 300ml last fill, 10 hours volume overload change from dextrose 1.5% mix with 2.5%, what he was using at home, to all 2.5% acid- base metabolic acidosis- within the limitation of not having a blood gas, 2/2 renal disease continue PD; if serum bicarbonate remains below 22, start sodium bicarbonate bone-mineral secondary hyperparathyroidism of renal origin. continue home medication. hematologic anemia iron 39, Tsat 17, ferritin 447. s/p 40mcg aranesp 08/24/2019. will continue outpatient management. will need iron infusion as well.
[2019-08-29] MEDS ORDERED: ONDANSETRON 4 MG/2 ML VIAL IV PRN (17:58)
[2019-08-29] MEDS ORDERED: DEXTROSE 31 GM ORAL.SUSP PO PRN (17:58)
[2019-08-29] MEDS ORDERED: DEXTROSE 50% 50 ML VIAL IV PRN (17:58)
[2019-08-29] MEDS ORDERED: IPRATROPIUM/ALBUTEROL 3 ML AMPUL.NEB NEB PRN (17:58)
[2019-08-29] MEDS ORDERED: SENNOSIDES 1 TABLET PO PRN (17:58)
[2019-08-29] MEDS ORDERED: POLYETHYLENE GLYCOL 3350 17 GM PACKET PO PRN (17:58)
[2019-08-29] MEDS: DOCUSATE SODIUM 100 MG CAPSULE PO SCH (20:27)
[2019-08-29] MEDS: DOXAZOSIN 4 MG TABLET PO SCH (20:27)
[2019-08-29] MEDS: HEPARIN 5,000 UNIT/ML VIAL SQ SCH (20:30)
[2019-08-29] MEDS: INSULIN LISPRO 1 UNIT/0.01 ML UNIT SQ SCH ×2 (20:32→20:49)
[2019-08-29] MEDS: 0.9 % SODIUM CHLORIDE 10 ML SYRINGE IV SCH (20:50)
[2019-08-29] MEDS: ACETAMINOPHEN 325 MG TABLET PO PRN (22:35)
[2019-08-30 06:21] LABS: Basophils # (Auto) 0 K/mcL (0.0-0.3); Basophils % (Auto) 0.5 % (0.0-2.0); Eosinophils # (Auto) 0.2 K/mcL (0.0-0.7); Eosinophils % (Auto) 2.5 % (0.0-7.0); Granulocytes % (Auto) 75.6 % (38.0-78.0); Hematocrit 29.8 % (41.0-55.0); Hemoglobin 9.9 g/dL (13.5-16.5); Lymphocytes # (Auto) 1.1 K/mcL (1.5-4.8); Lymphocytes % (Auto) 12.7 % (15.5-49.0); Mean Cell Volume 93.5 fL (80.0-100.0); Mean Corpuscular HGB Conc 33.3 g/dL (31.0-36.0); Mean Platelet Volume 8.2 fL (7.4-10.4); Monocytes # (Auto) 0.7 K/mcL (0.1-0.9); Monocytes % (Auto) 8.7 % (1.0-12.0); Platelet Count 223 K/mcL (140-440); RBC 3.19 M/mcL (4.50-5.90); Red Cell Distribution Width 14.1 % (11.5-14.5); WBC 8.5 K/mcL (4.5-11.0)
[2019-08-30 06:53] LABS: ALT/SGPT 9 U/l (0-40); AST/SGOT 8 U/l (0-37); Albumin/Globulin Ratio 0.9 (1.0-2.3); Alkaline Phosphatase 73 U/L (39-117); Bilirubin,Direct < 0.2 mg/dL (0.0-0.3); Bilirubin,Total 0.2 mg/dL (0.0-1.0); Blood Urea Nitrogen 44 mg/dl (8-23); Calcium 8.5 mg/dl (8.6-10.4); Carbon Dioxide 19 mmol/L (22-30); Chloride 99 mmol/L (96-108); Globulin 3.3 gm/dL (2.2-3.7); Glomerular Filtration Rate 7; Glucose 244 mg/dL (70-105); Lactate Dehydrogenase 263 U/L (94-250); Phosphorous 7.4 mg/dL (2.7-4.5); Triglycerides 132 mg/dl (<150)
[2019-08-30] MEDS: DOXAZOSIN 4 MG TABLET PO SCH ×2 (07:43→20:33)
[2019-08-30] MEDS: BUMETANIDE 1 MG TABLET PO SCH (07:43)
[2019-08-30] MEDS: HEPARIN 5,000 UNIT/ML VIAL SQ SCH ×2 (07:43→20:32)
[2019-08-30] MEDS: DOCUSATE SODIUM 100 MG CAPSULE PO SCH ×2 (07:43→20:33)
[2019-08-30] MEDS: LOSARTAN 50 MG TABLET PO SCH (07:43)
[2019-08-30] MEDS: 0.9 % SODIUM CHLORIDE 10 ML SYRINGE IV SCH ×3 (07:44→21:06)
[2019-08-30] MEDS: CALCITRIOL 0.25 MCG CAPSULE PO SCH (07:44)
[2019-08-30] MEDS: INSULIN LISPRO 1 UNIT/0.01 ML UNIT SQ SCH ×6 (07:44→20:25)
[2019-08-30] MEDS ORDERED: traMADol HCL/ACETAMINOPHEN 1 TAB TABLET PO PRN (07:58)
[2019-08-30] MEDS ORDERED: SEVELAMER 800 MG TABLET PO SCH (08:00)
--- NOTE | 2019-08-30 08:02 | Internal Med Progress Note ---
Medical - PN: Subj Patient information: Note initiated : 08/30/19 at 8:00 am Service Date, if different from initiated Date: [] Patient: Zachary Villavicencio 84 y/o M admitted on 08/29/19 for weakness. Chief Complaint: [] Interval history: Mr. Villavicencio is a 84 year old M Presents the ED sent in by his because he is been progressively weak. Patient states he is fallen multiple times lately. These falls occur when he he is standing and transitioning from toilet to wheelchair or standing to get on his pants. He says he cannot stand very long before he gets weak and falls down. He states is been wheelchair-bound for about a year, and he is able to transfer self, but has not even tried to walk with a walker for long time. is Parkinson's and has a difficult time taking care of him and has her own medical issues. Placement has tried to be pursued with [facility] but [facility] and then he refused to go to [employer]. He denies any acute complaints other than feeling weak. Denies any chest pain shortness of breath, denies any respiratory issues or abdominal pain. In the ED vitals were stable other than initial high blood pressure which resolved on its own. His creatinine is 6.9 and he is a peritoneal dialysis patient. Case was discussed with Dr. Roberts. No recent illnesses. 08/30 States poor sleep last night. No other new complaints. Getting peritoneal dialysis. Review of Systems: denies headache/fever/chills/nausea/vomiting/chest or abdominal pain/cough/dyspnea/diarrhea. Otherwise see above. - Constitutional Vitals: Vital Signs Temp Pulse Resp BP Pulse Ox 99.0 F 61 16 172/74 95 08/30/19 07:57 08/30/19 07:57 08/30/19 07:57 08/30/19 07:57 08/30/19 07:57 Period Temp Pulse Resp BP Sys/Juárez Pulse Ox Last 24 Hr 96.8 F-99.0 F 61-84 13- 144-206/65-88 94-99 Intake and Output 08/29/19 08/30/19 08/30/19 21:59 05:59 13:59 Intake Total 900 480 Output Total 225 1 Balance -225 899 480 Weight 106.594 kg Intake & Output: Intake & Output 08/29/19 08/30/19 08/30/19 21:59 05:59 13:59 Intake Total 900 480 Output Total 225 1 Balance -225 899 480 Weight 106.594 kg Intake: Oral 900 480 Output: Void Amount 225 0 # of times incontinent of urine 1 Other: Urine Appearance Clear Urine Color Pale Exam: General: Alert, Awake, No acute Distress, obese Eyes/N/T: EOMI, , Head/Neck: neck supple, CV: RRR, 1/6 SM, Pulm: Clear b/l, no wheezing/rhonchi/rales Abd: soft, nontender, +BS x4 Ext: no clubbing/cyanosis, 3+ b/l LE edema Neuro: Alert, no focal deficits, moves all extremities, Skin: warm/dry Medical - PN: Obj Da - Labs CBC & Chem 7: 08/30/19 04:22 08/30/19 04:22 Labs: Abnormal Lab Results 08/30/19 08/30/19 08/29/19 04:22 04:22 12:15 RBC 3.19 L Hgb 9.9 L Hct 29.8 L Lymph % (Auto) 12.7 L Lymph # (Auto) 1.1 L Carbon Dioxide 19 L Anion Gap 19.0 H BUN 44 H Creatinine 6.5 H* Glucose 244 H Calcium 8.5 L Phosphorus 7.4 H* Lactate Dehydrogenase 263 H Troponin T 0.10 H* C-Reactive Protein NT-Pro-B Natriuret Pep Albumin 3.0 L Albumin/Globulin Ratio 0.9 L 08/29/19 08/29/19 12:15 12:15 RBC 3.35 L Hgb 10.2 L Hct 30.3 L Lymph % (Auto) 11.7 L Lymph # (Auto) 1.1 L Carbon Dioxide 21 L Anion Gap 17.0 H BUN 46 H Creatinine 6.9 H* Glucose 158 H Calcium Phosphorus Lactate Dehydrogenase Troponin T C-Reactive Protein 2.3 H NT-Pro-B Natriuret Pep 7572.0 H Albumin Albumin/Globulin Ratio Meds: Medications Acetaminophen (Tylenol) 650 mg PO Q6HP PRN PRN Reason: PAIN/FEVER > 101 Last Admin: 08/29/19 22:35 Dose: 650 mg Documented by: Albuterol/Ipratropium (Duoneb) 3 ml NEB Q4HP PRN PRN Reason: Shortness Of Breath Amlodipine Besylate (Norvasc) 5 mg PO QDAY [facility] Last Admin: 08/30/19 07:43 Dose: 5 mg Documented by: Bumetanide (Bumex) 4 mg PO QAM [facility] Last Admin: 08/30/19 07:43 Dose: 4 mg Documented by: Calcitriol (Rocaltrol) 0.25 mcg PO DAILY [facility] Last Admin: 08/30/19 07:44 Dose: 0.25 mcg Documented by: Dextrose (Dextrose 50%) 0 ml IV UD PRN PRN Reason: Hypoglycemia Diagnostic Test (Pha) (Accu-Chek) 1 each FS [facility] Last Admin: 08/30/19 07:34 Dose: 1 each Documented by: Docusate Sodium (Colace) 100 mg PO BID [facility] Last Admin: 08/30/19 07:43 Dose: 100 mg Documented by: Doxazosin Mesylate (Cardura) 4 mg PO BID [facility] Last Admin: 08/30/19 07:43 Dose: 4 mg Documented by: Glucose (Insta-Glucose) 15 gm PO PRN PRN PRN Reason: Hypoglycemia Heparin Sodium (Porcine) (Heparin) 5,000 unit SQ Q12 [facility] Last Admin: 08/30/19 07:43 Dose: 5,000 unit Documented by: Insulin Human Lispro (Humalog) 0 unit SQ [facility]; Protocol Last Admin: 08/30/19 07:44 Dose: 2 units Documented by: Losartan Potassium (Cozaar) 100 mg PO QDAY [facility] Last Admin: 08/30/19 07:43 Dose: 100 mg Documented by: Ondansetron HCl (Zofran) 4 mg IV Q4HP PRN PRN Reason: Nausea And Vomiting Polyethylene Glycol (Miralax) 17 gm PO DAILYP PRN PRN Reason: Constipation Senna (Senokot) 2 tab PO DAILYP PRN PRN Reason: Constipation Last Admin: 08/30/19 07:48 Dose: 2 tab Documented by: Sodium Chloride (Saline Flush) 10 ml IV Q8 [facility] Last Admin: 08/30/19 07:44 Dose: 10 ml Documented by: Vitamin D (Vitamin D3) 1,000 unit PO DAILY [facility] Last Admin: 08/30/19 07:43 Dose: 1,000 unit Documented by: Medical - PN: A/P - Time Spent With Patient Total time spent is greater than 50% in coordination of care (as documented) at patient's floor/unit and/or counseling patient: - Narrative A/P Narrative: A: *Generalized weakness/deconditioning/debility/failure to thrive: -There have been attempts in the past to get him to a care facility *Fallin/2 above *Renal failure, on PD: *Anemia, chronic: *DM w/neuropathy: *HTN/HLD: *BPH: *Obese *Atelectasis: P: -Nephrology for dialysis -pt/ot -CM for placement -cont home norvasc/ARB/Bumex -SSI, basal insulin -IS -ppx: heparin Medical - PN: Qual - VTE Deep Vein Thrombosis/Pulmonary Embolism Present on Admission: No
[2019-08-30] MEDS: CINACALCET 30 MG TABLET PO SCH (08:48)
[2019-08-30] MEDS: CALCIUM ACETATE 667 MG CAPSULE PO SCH ×2 (08:48→17:25)
[2019-08-30] MEDS: SODIUM BICARBONATE 650 MG TABLET PO SCH ×2 (08:48→20:33)
[2019-08-30] MEDS: INSULIN GLARGINE, HUMAN 1 UNIT/0.01 ML SQ SCH ×2 (08:49→20:26)
[2019-08-30] MEDS: glipiZIDE 5 MG TAB.XL.24H PO SCH ×2 (08:49→17:22)
[2019-08-30] MEDS: VITAMIN D3 1,000 UNIT TABLET PO SCH (08:49)
[2019-08-30] MEDS ORDERED: VITAMIN D3 1,000 UNIT TABLET PO SCH (09:00)
[2019-08-30] MEDS ORDERED: amLODIPine 5 MG TABLET PO SCH ×2 (09:00)
[2019-08-30] MEDS: ACETAMINOPHEN 325 MG TABLET PO PRN ×2 (09:04→21:06)
--- NOTE | 2019-08-30 11:03 | Nephrology Progress Note ---
Subjective Patient information: Note initiated : 08/30/19 at 10:58 am Service Date, if different from initiated Date: [] Patient: Zachary Villavicencio 84 y/o M admitted on 08/29/19 for weakness. Chief Complaint: [] Interval history: got PD, 1.5L UF still bilateral lower extremity edema Objective - Vital Signs Vital signs: Vital Signs Temp Pulse Pulse Pulse Resp BP BP 08/30/19 09:39 08/30/19 09:26 37.2 C 172/74 08/30/19 09:14 37.2 C 172/74 08/30/19 08:00 84 08/30/19 07:57 37.2 C 61 16 172/74 08/30/19 04:21 36.9 C 63 16 144/65 08/29/19 23:40 36.8 C 84 16 186/71 08/29/19 20:18 37.2 C 206/82 08/29/19 19:25 37.2 C 72 16 206/82 08/29/19 18:10 72 16 08/29/19 17:28 36.9 C 61 18 175/69 08/29/19 17:02 182/80 08/29/19 16:46 17 150/82 08/29/19 16:31 15 170/73 08/29/19 16:16 14 171/77 08/29/19 16:01 13 162/77 08/29/19 15:46 16 148/71 08/29/19 15:31 15 157/66 08/29/19 15:16 13 191/88 08/29/19 15:02 19 185/82 08/29/19 14:47 17 174/83 08/29/19 14:32 15 171/81 08/29/19 14:17 63 15 147/69 08/29/19 14:15 69 17 08/29/19 14:02 161/71 08/29/19 13:47 164/78 08/29/19 13:32 189/73 08/29/19 13:17 187/79 08/29/19 13:02 13 195/84 08/29/19 12:53 61 13 08/29/19 11:29 63 15 08/29/19 11:16 36.0 C L 65 17 201/75 Pulse Ox 08/30/19 09:39 95 08/30/19 09:26 08/30/19 09:14 08/30/19 08:00 08/30/19 07:57 95 08/30/19 04:21 94 08/29/19 23:40 99 08/29/19 20:18 08/29/19 19:25 97 08/29/19 18:10 08/29/19 17:28 97 08/29/19 17:02 08/29/19 16:46 08/29/19 16:31 08/29/19 16:16 08/29/19 16:01 08/29/19 15:46 08/29/19 15:31 08/29/19 15:16 08/29/19 15:02 08/29/19 14:47 08/29/19 14:32 08/29/19 14:17 97 08/29/19 14:15 95 08/29/19 14:02 08/29/19 13:47 08/29/19 13:32 08/29/19 13:17 08/29/19 13:02 08/29/19 12:53 99 08/29/19 11:29 97 08/29/19 11:16 99 Intake and Output 08/29/19 08/30/19 08/30/19 21:59 05:59 13:59 Intake Total 900 1020 Output Total 225 1 Balance -170 707 4813 Intake: Oral 900 1020 Output: Void Amount 225 0 # of times incontinent of urine 1 Other: Meal Breakfast Feeding Ability Assist with Tray Set Up Urine Appearance Clear Urine Color Pale Weight 106.594 kg Intake & Output: Intake & Output 08/29/19 08/30/19 08/30/19 21:59 05:59 13:59 Intake Total 900 1020 Output Total 225 1 Balance -965 590 2647 Weight 106.594 kg Intake: Oral 900 1020 Output: Void Amount 225 0 # of times incontinent of urine 1 Other: Meal Breakfast Feeding Ability Assist with Tray Set Up Urine Appearance Clear Urine Color Pale Respiratory: clear Cardiology: edema Gastrointestinal: no tenderness - Lab 08/30/19 04:22 08/30/19 04:22 Most recent lab results Calcium 8.5 mg/dl (8.6-10.4) L 08/30/19 04:22 Phosphorus 7.4 mg/dL (2.7-4.5) H* 08/30/19 04:22 Magnesium 2.1 mg/dL (1.6-2.5) 08/30/19 04:22 Assessment and Plan (1) ESRD (end stage renal disease) on dialysis Status: Chronic Priority: Medium - Narrative A/P Narrative: continue PD 2.5% dextrose x5 cycles, 2.2L per fill, 90% tidal, 300ml last fill, 10 hours * renal diet volume overload - PD as above. * strict I/O hypertension *can increase the amlodipine to 10mg po daily acid- base metabolic acidosis- within the limitation of not having a blood gas, 2/2 renal disease continue PD; on sodium bicarbonate 1300mg po bid. continue bone-mineral *hyperphosphatemia - increase sevelamer to 1600mg po qac secondary hyperparathyroidism of renal origin. continue home medication. hematologic anemia iron 39, Tsat 17, ferritin 447. s/p 40mcg aranesp 08/24/2019. will continue outpatient management. will need iron infusion as well. H and H Sep 07; further aranesp titration based on Hg level.
[2019-08-30] MEDS ORDERED: amLODIPine 5 MG TABLET PO ONE (12:07)
[2019-08-30] MEDS: SEVELAMER 800 MG TABLET PO SCH ×2 (12:39→17:25)
[2019-08-30] MEDS: ATORVASTATIN 20 MG TABLET PO SCH (20:32)
[2019-08-30] MEDS: GABAPENTIN 300 MG CAPSULE PO SCH (20:33)
[2019-08-31] MEDS: 0.9 % SODIUM CHLORIDE 10 ML SYRINGE IV SCH ×3 (04:29→20:32)
[2019-08-31 06:45] LABS: ALT/SGPT 6 U/l (0-40); AST/SGOT 9 U/l (0-37); Albumin 2.9 gm/dL (3.2-5.2); Albumin/Globulin Ratio 0.9 (1.0-2.3); Alkaline Phosphatase 64 U/L (39-117); Bilirubin,Direct < 0.2 mg/dL (0.0-0.3); Bilirubin,Total 0.2 mg/dL (0.0-1.0); Blood Urea Nitrogen 47 mg/dl (8-23); Calcium 8.6 mg/dl (8.6-10.4); Carbon Dioxide 20 mmol/L (22-30); Chloride 102 mmol/L (96-108); Globulin 3.4 gm/dL (2.2-3.7); Glomerular Filtration Rate 7; Glucose 136 mg/dL (70-105); Lactate Dehydrogenase 282 U/L (94-250); Phosphorous 7.2 mg/dL (2.7-4.5); Triglycerides 117 mg/dl (<150); Uric Acid 5.3 mg/dL (2.5-8.0)
[2019-08-31] MEDS ORDERED: hydrALAZINE 20 MG/ML VIAL IV PRN (07:07)
--- NOTE | 2019-08-31 07:08 | Internal Med Progress Note ---
Medical - PN: Subj Patient information: Note initiated : 08/31/19 at 7:06 am Service Date, if different from initiated Date: [] Patient: Zachary Villavicencio 84 y/o M admitted on 08/29/19 for weakness. Chief Complaint: [] Interval history: Mr. Villavicencio is a 84 year old M Presents the ED sent in by his because he is been progressively weak. Patient states he is fallen multiple times lately. These falls occur when he he is standing and transitioning from toilet to wheelchair or standing to get on his pants. He says he cannot stand very long before he gets weak and falls down. He states is been wheelchair-bound for about a year, and he is able to transfer self, but has not even tried to walk with a walker for long time. is Parkinson's and has a difficult time taking care of him and has her own medical issues. Placement has tried to be pursued with him in the past but [facility] and then he refused to go to [place]. He denies any acute complaints other than feeling weak. Denies any chest pain shortness of breath, denies any respiratory issues or abdominal pain. In the ED vitals were stable other than initial high blood pressure which resolved on its own. His creatinine is 6.9 and he is a peritoneal dialysis patient. Case was discussed with Dr. Roberts. No recent illnesses. 08/30 States poor sleep last night. No other new complaints. Getting peritoneal dialysis. 08/31 No overnight events. Awaiting placement as unable to take care of at home and patient has refused converting to hemodialysis to go to other skilled facilities and has refused [place] that will except peritoneal dialysis. Review of Systems: denies headache/fever/chills/nausea/vomiting/chest or abdominal pain/cough/dyspnea/diarrhea. Otherwise see above. - Constitutional Vitals: Vital Signs Temp Pulse Resp BP Pulse Ox 98.1 F 62 14 148/66 96 08/31/19 03:58 08/31/19 03:58 08/31/19 03:58 08/31/19 03:58 08/31/19 03:58 Period Temp Pulse Resp BP Sys/Juárez Pulse Ox Last 24 Hr 97.4 F-99.0 F 61-84 14-18 120-190/63-82 94-96 Intake and Output 08/30/19 08/31/19 08/31/19 21:59 05:59 13:59 Intake Total 760 Output Total 226 Balance 534 Weight 107.229 kg Intake & Output: Intake & Output 08/30/19 08/31/19 08/31/19 21:59 05:59 13:59 Intake Total 760 Output Total 226 Balance 534 Weight 107.229 kg Intake: Oral 760 Output: Void Amount 225 # of times incontinent of urine 1 Other: Meal Dinner Percent of Meal Consumed 100% Feeding Ability Assist with Tray Set Up Urine Appearance Clear Urine Color Pale Stool Size Large Stool Color Brown Dk Colored Stool Consistency Formed Cylindrical # Bowel Movements 1 Exam: General: Alert, Awake, No acute Distress, obese Eyes/N/T: EOMI, , Head/Neck: neck supple, CV: RRR, 1/6 SM, Pulm: Clear b/l, no wheezing/rhonchi/rales Abd: soft, nontender, +BS x4 Ext: no clubbing/cyanosis, 2-3+ b/l LE edema Neuro: Alert, no focal deficits, moves all extremities, Skin: warm/dry Medical - PN: Obj Da - Labs CBC & Chem 7: 08/30/19 04:22 08/31/19 04:35 Labs: Abnormal Lab Results 08/31/19 08/30/19 08/30/19 04:35 04:22 04:22 RBC 3.19 L Hgb 9.9 L Hct 29.8 L Lymph % (Auto) 12.7 L Lymph # (Auto) 1.1 L Carbon Dioxide 20 L 19 L Anion Gap 17.0 H 19.0 H BUN 47 H 44 H Creatinine 6.6 H* 6.5 H* Glucose 136 H 244 H Calcium 8.5 L Phosphorus 7.2 H* 7.4 H* Lactate Dehydrogenase 282 H 263 H Troponin T C-Reactive Protein NT-Pro-B Natriuret Pep Albumin 2.9 L 3.0 L Albumin/Globulin Ratio 0.9 L 0.9 L 08/29/19 08/29/19 08/29/19 12:15 12:15 12:15 RBC 3.35 L Hgb 10.2 L Hct 30.3 L Lymph % (Auto) 11.7 L Lymph # (Auto) 1.1 L Carbon Dioxide 21 L Anion Gap 17.0 H BUN 46 H Creatinine 6.9 H* Glucose 158 H Calcium Phosphorus Lactate Dehydrogenase Troponin T 0.10 H* C-Reactive Protein 2.3 H NT-Pro-B Natriuret Pep 7572.0 H Albumin Albumin/Globulin Ratio Meds: Medications Acetaminophen (Tylenol) 650 mg PO Q6HP PRN PRN Reason: PAIN/FEVER > 101 Last Admin: 08/30/19 21:06 Dose: 650 mg Documented by: Albuterol/Ipratropium (Duoneb) 3 ml NEB Q4HP PRN PRN Reason: Shortness Of Breath Amlodipine Besylate (Norvasc) 10 mg PO QDAY [facility] Atorvastatin Calcium (Lipitor) 10 mg PO HS [facility] Last Admin: 08/30/19 20:32 Dose: 10 mg Documented by: Bumetanide (Bumex) 4 mg PO QAM [facility] Last Admin: 08/30/19 07:43 Dose: 4 mg Documented by: Calcitriol (Rocaltrol) 0.25 mcg PO DAILY [facility] Last Admin: 08/30/19 07:44 Dose: 0.25 mcg Documented by: Calcium Acetate (Phoslo) 1,334 mg PO BIDPC [facility] Last Admin: 08/30/19 17:25 Dose: 1,334 mg Documented by: Cinacalcet (Sensipar) 60 mg PO QAMCC [facility] Last Admin: 08/30/19 08:48 Dose: 60 mg Documented by: Dextrose (Dextrose 50%) 0 ml IV UD PRN PRN Reason: Hypoglycemia Diagnostic Test (Pha) (Accu-Chek) 1 each FS ACHS [facility] Last Admin: 08/30/19 20:25 Dose: 1 each Documented by: Docusate Sodium (Colace) 100 mg PO BID [facility] Last Admin: 08/30/19 20:33 Dose: 100 mg Documented by: Doxazosin Mesylate (Cardura) 4 mg PO BID [facility] Last Admin: 08/30/19 20:33 Dose: 4 mg Documented by: Gabapentin (Neurontin) 300 mg PO QHS [facility] Last Admin: 08/30/19 20:33 Dose: 300 mg Documented by: Glipizide (Glucotrol Xl) 10 mg PO BIDCC [facility] Last Admin: 08/30/19 17:22 Dose: Not Given Documented by: Glucose (Insta-Glucose) 15 gm PO PRN PRN PRN Reason: Hypoglycemia Heparin Sodium (Porcine) (Heparin) 5,000 unit SQ Q12 [facility] Last Admin: 08/30/19 20:32 Dose: 5,000 unit Documented by: Insulin Glargine (Lantus) 20 unit SQ HS [facility] Last Admin: 08/30/19 20:26 Dose: Not Given Documented by: Insulin Glargine (Lantus) 40 unit SQ DAILY [facility] Last Admin: 08/30/19 08:49 Dose: 40 unit Documented by: Insulin Human Lispro (Humalog) 0 unit SQ ACHS [facility]; Protocol Last Admin: 08/30/19 20:25 Dose: Not Given Documented by: Insulin Human Lispro (Humalog) 7 unit SQ TIDAC [facility] Last Admin: 08/30/19 17:22 Dose: Not Given Documented by: Losartan Potassium (Cozaar) 100 mg PO QDAY [facility] Last Admin: 08/30/19 07:43 Dose: 100 mg Documented by: Ondansetron HCl (Zofran) 4 mg IV Q4HP PRN PRN Reason: Nausea And Vomiting Polyethylene Glycol (Miralax) 17 gm PO DAILYP PRN PRN Reason: Constipation Senna (Senokot) 2 tab PO DAILYP PRN PRN Reason: Constipation Last Admin: 08/30/19 07:48 Dose: 2 tab Documented by: Sevelamer Carbonate (Renvela) 1,600 mg PO TIDCC [facility] Last Admin: 08/30/19 17:25 Dose: 1,600 mg Documented by: Sodium Bicarbonate (Sodium Bicarbonate) 1,300 mg PO BID [facility] Last Admin: 08/30/19 20:33 Dose: 1,300 mg Documented by: Sodium Chloride (Saline Flush) 10 ml IV Q8 [facility] Last Admin: 08/31/19 04:29 Dose: 10 ml Documented by: Tramadol/Acetaminophen (Ultracet) 1 tab PO Q12HP PRN PRN Reason: Pain Vitamin D (Vitamin D3) 2,000 unit PO DAILY [facility] Last Admin: 08/30/19 08:49 Dose: Not Given Documented by: Medical - PN: A/P - Time Spent With Patient Total time spent is greater than 50% in coordination of care (as documented) at patient's floor/unit and/or counseling patient: - Narrative A/P Narrative: A: *Generalized weakness/deconditioning/debility/failure to thrive: -There have been attempts in the past to get him to a care facility *Fallin/2 above *Renal failure, on PD: *Anemia, chronic: *DM w/neuropathy: *HTN/HLD: *BPH: *Obese *Atelectasis: P: -Nephrology for dialysis -pt/ot -CM for placement -cont home norvasc(increased)/ARB/Bumex -SSI, basal insulin -IS - -ppx: heparin Medical - PN: Qual - VTE Deep Vein Thrombosis/Pulmonary Embolism Present on Admission: No
[2019-08-31] MEDS: amLODIPine 5 MG TABLET PO SCH (07:39)
[2019-08-31] MEDS: LOSARTAN 50 MG TABLET PO SCH (07:39)
[2019-08-31] MEDS: SEVELAMER 800 MG TABLET PO SCH ×3 (07:39→16:58)
[2019-08-31] MEDS: CALCIUM ACETATE 667 MG CAPSULE PO SCH ×2 (07:39→16:58)
[2019-08-31] MEDS: glipiZIDE 5 MG TAB.XL.24H PO SCH ×2 (07:39→16:59)
[2019-08-31] MEDS: CINACALCET 30 MG TABLET PO SCH (07:40)
[2019-08-31] MEDS: HEPARIN 5,000 UNIT/ML VIAL SQ SCH ×2 (08:54→20:05)
[2019-08-31] MEDS: BUMETANIDE 1 MG TABLET PO SCH (08:54)
[2019-08-31] MEDS: SODIUM BICARBONATE 650 MG TABLET PO SCH ×2 (08:54→20:06)
[2019-08-31] MEDS: VITAMIN D3 1,000 UNIT TABLET PO SCH (08:55)
[2019-08-31] MEDS: CALCITRIOL 0.25 MCG CAPSULE PO SCH (08:55)
[2019-08-31] MEDS: DOXAZOSIN 4 MG TABLET PO SCH ×2 (08:55→20:05)
[2019-08-31] MEDS: DOCUSATE SODIUM 100 MG CAPSULE PO SCH ×2 (08:55→20:05)
[2019-08-31] MEDS: INSULIN LISPRO 1 UNIT/0.01 ML UNIT SQ SCH ×8 (08:56→20:31)
[2019-08-31] MEDS ORDERED: INSULIN GLARGINE, HUMAN 1 UNIT/0.01 ML SQ SCH (09:15)
--- NOTE | 2019-08-31 16:14 | Nephrology Progress Note ---
Subjective Patient information: Note initiated : 08/31/19 at 4:07 pm Service Date, if different from initiated Date: [] Patient: Zachary Villavicencio 84 y/o M admitted on 08/29/19 for weakness. Chief Complaint: [] Principal diagnosis: ESRD on PD Interval history: Sleeping at the time of my visit; briefly opened his eyes, had no complaints. On room air, nonlabored respirations Approximately 1.1 L UF overnight. Lower extremity edema persistent but improved. Objective - Vital Signs Vital signs: Vital Signs Temp Pulse Pulse Resp BP BP Pulse Ox 08/31/19 12:00 36.7 C 70 18 140/78 96 08/31/19 08:36 36.8 C 175/75 08/31/19 08:30 132/72 08/31/19 07:12 36.8 C 66 18 175/75 97 08/31/19 03:58 36.7 C 62 14 148/66 96 08/30/19 23:10 37.1 C 69 18 190/82 94 08/30/19 20:04 36.3 C 158/64 08/30/19 19:41 36.3 C 76 16 158/64 96 08/30/19 18:07 70 16 Intake and Output 08/31/19 08/31/19 08/31/19 05:59 13:59 21:59 Intake Total 590 Output Total 401 Balance 189 Intake: Oral 590 Output: Void Amount 400 # of times incontinent of urine 1 Other: Meal Breakfast Percent of Meal Consumed 100% Feeding Ability Assist with Tray Set Up Urine Appearance Clear Urine Color Pale Urine Odor Normal Stool Size Large Stool Color Brown Dk Colored Stool Consistency Formed Cylindrical # Bowel Movements 1 Intake & Output: Intake & Output 08/31/19 08/31/19 08/31/19 05:59 13:59 21:59 Intake Total 590 Output Total 401 Balance 189 Intake: Oral 590 Output: Void Amount 400 # of times incontinent of urine 1 Other: Meal Breakfast Percent of Meal Consumed 100% Feeding Ability Assist with Tray Set Up Urine Appearance Clear Urine Color Pale Urine Odor Normal Stool Size Large Stool Color Brown Dk Colored Stool Consistency Formed Cylindrical # Bowel Movements 1 EENT: ATNC Respiratory: clear Integumentary: warm and dry - Lab 08/30/19 04:22 08/31/19 04:35 Most recent lab results Calcium 8.6 mg/dl (8.6-10.4) 08/31/19 04:35 Phosphorus 7.2 mg/dL (2.7-4.5) H* 08/31/19 04:35 Magnesium 2.1 mg/dL (1.6-2.5) 08/31/19 04:35 Assessment and Plan (1) ESRD (end stage renal disease) on dialysis Status: Chronic Priority: Medium (2) Hypertension Status: Acute (3) Hyperphosphatemia Status: Acute - Narrative A/P Narrative: continue PD 2.5% dextrose x5 cycles, 2.2L per fill, 90% tidal, 300ml last fill, 10 hours renal diet Social situation is difficult as his with Parkinson had difficulty helping him perform peritoneal dialysis. The patient is not interesting in pursuing hemodialysis. The social and human services assistant is involved in trying to find placement for the patient. volume overload -serum albumin 2.9, low oncotic pressure contributing to his edema PD as above. goal ~1-1.5L net negative per day, as tolerated strict I/O hypertension - continue to challenge dry weight. should have PRN medication available e.g hydralazine/ labetalol (if HR tolerates) for SBP >160 amlodipine increased to 10mg po daily. challenge dry weight acid- base metabolic acidosis- within the limitation of not having a blood gas, 2/2 renal disease continue PD; on sodium bicarbonate 1300mg po bid. continue bone-mineral ca, mg at goal. hyperphosphatemia -sevelamer increased to 1600mg po tid with meals. secondary hyperparathyroidism of renal origin. * decrease calcitriol to 0.25mcg po every other day as chronic hyperphosphatemia. if PO4 remains elevated I will eventually stop the calcitriol hematologic anemia iron 39, Tsat 17, ferritin 447. s/p 40mcg aranesp 08/24/2019. will continue outpatient management. will need iron infusion as well. H and H Sep 07; further aranesp titration based on Hg level.
[2019-08-31] MEDS: INSULIN GLARGINE, HUMAN 1 UNIT/0.01 ML SQ SCH ×2 (16:42→20:06)
--- NOTE | 2019-08-31 19:43 | Discharge Summary ---
Medical - DS: Prov Patient information: Note initiated : 08/31/19 at 7:41 pm Service Date, if different from initiated Date: [] Patient: Zachary Villavicencio 84 y/o M admitted on 08/29/19 for weakness. Chief Complaint: [] Date of admission: 08/29/19 17:28 Discharge date: 09/01/19 Primary care physician: Vimal Clark Consults: 08/29/19 17:58 Consult to Physician [CONS] Routine Comment: Consulting Provider: Ally May Reason For Exam: Physician to Consult 08/31/19 08:45 Consult to Physician [CONS] Routine Comment: Consulting Provider: Guillermo Myles Reason For Exam: Physician to Consult Medical - DS: Meds - Discharge Medications Prescriptions: Gabapentin [Neurontin] 100 mg PO QHS #30 cap amLODIPine [Norvasc] 10 mg PO QDAY #30 tab Active and Home Medications: Home Medications Blood Sugar Diagnostic [Contour Test Strip] 1 strip .ROUTE .MEDSUPPLY 06/12/17 [History Confirmed 08/29/19 Last Taken 06/12/17] Calcitriol [Rocaltrol] 0.25 mcg PO MOWEFR 06/12/17 [History Confirmed 08/29/19 Last Taken Unknown] sevelamer carbonate 800 mg tablet 800 mg PO TID #90 tab 12/16/17 [Rx Confirmed 08/29/19 Last Taken Unknown] atorvastatin 10 mg tablet 10 mg PO QDAY #90 tab 02/17/19 [Rx Confirmed 08/29/19 Last Taken Unknown] doxazosin 4 mg tablet 4 mg PO BID #180 tab 03/16/19 [Rx Confirmed 08/29/19 Last Taken Unknown] sodium bicarbonate 650 mg tablet 1,300 mg PO BID #360 tab 03/16/19 [Rx Confirmed 08/29/19 Last Taken Unknown] losartan 100 mg tablet 100 mg PO QDAY #90 tab 06/11/19 [Rx Confirmed 08/29/19 Last Taken Unknown] bumetanide 2 mg tablet 4 mg PO QAM #180 tab 07/20/19 [Rx Confirmed 08/29/19 Last Taken Unknown] gabapentin 300 mg capsule 300 mg PO QHS #90 cap 07/23/19 [Rx Confirmed 08/30/19 Last Taken Unknown] insulin glargine U-300 conc 300 unit/mL (1.5 mL) subcutaneous pen See Rx Instructions SUB-Q .COMPLEX #4.5 ml 08/11/19 [Rx Confirmed 08/29/19 Last Taken Unknown] insulin lispro 100) 100 unit/mL subcutaneous pen 7 unit SUB-Q TID #15 ml 08/11/19 [Rx Confirmed 08/29/19 Last Taken Unknown] Ascorbic Acid [Vitamin C with Donna Hips] 500 mg PO DAILY 08/29/19 [History Confirmed 08/29/19 Last Taken Unknown] Calcium Acetate [Phoslo] 1,334 mg PO BIDPC 08/29/19 [History Confirmed 08/30/19 Last Taken Unknown] Cholecalciferol (Vitamin D3) [D3 Dots] 2,000 unit PO DAILY 08/29/19 [History Confirmed 08/29/19 Last Taken Unknown] Cinacalcet [Sensipar] 60 mg PO QAMCC 08/29/19 [History Confirmed 08/30/19 Last Taken Unknown] Docusate Sodium [Colace] 100 mg PO TIDP PRN 08/29/19 [History Confirmed 08/30/19 Last Taken Unknown] Gentamicin Crm 0.1% 1 dose TOPICAL DAILY 08/29/19 [History Confirmed 08/30/19 Last Taken Unknown] Lancets See Dose Instructions each .ROUTE .MEDSUPPLY 08/29/19 [History Confirmed 08/29/19 Last Taken Unknown] Multivitamin [One-Daily Multi-Vitamin] 1 each PO DAILY 08/29/19 [History Confirmed 08/30/19 Last Taken Unknown] amLODIPine [Norvasc] 5 mg PO DAILY 08/29/19 [History Confirmed 08/29/19 Last Taken Unknown] glipiZIDE [Glipizide ER] 10 mg PO BIDCC 08/29/19 [History Confirmed 08/30/19 Last Taken Unknown] traMADol HCL/ACETAMINOPHEN [Ultracet Tablet] 1 each PO Q12HP PRN 08/29/19 [H istory Confirmed 08/30/19 Last Taken Unknown] Home Medications Blood Sugar Diagnostic [Contour Test Strip] 1 strip .ROUTE .MEDSUPPLY 06/12/17 [History Confirmed 08/29/19 Last Taken 06/12/17] Calcitriol [Rocaltrol] 0.25 mcg PO MOWEFR 06/12/17 [History Confirmed 08/29/19 Last Taken Unknown] sevelamer carbonate 800 mg tablet 800 mg PO TID #90 tab 12/16/17 [Rx Confirmed 08/29/19 Last Taken Unknown] atorvastatin 10 mg tablet 10 mg PO QDAY #90 tab 02/17/19 [Rx Confirmed 08/29/19 Last Taken Unknown] doxazosin 4 mg tablet 4 mg PO BID #180 tab 03/16/19 [Rx Confirmed 08/29/19 Last Taken Unknown] sodium bicarbonate 650 mg tablet 1,300 mg PO BID #360 tab 03/16/19 [Rx Confirmed 08/29/19 Last Taken Unknown] losartan 100 mg tablet 100 mg PO QDAY #90 tab 06/11/19 [Rx Confirmed 08/29/19 Last Taken Unknown] bumetanide 2 mg tablet 4 mg PO QAM #180 tab 07/20/19 [Rx Confirmed 08/29/19 Last Taken Unknown] insulin glargine U-300 conc 300 unit/mL (1.5 mL) subcutaneous pen See Rx I nstructions SUB-Q .COMPLEX #4.5 ml 08/11/19 [Rx Confirmed 08/29/19 Last Taken Unknown] insulin lispro 100) 100 unit/mL subcutaneous pen 7 unit SUB-Q TID #15 ml 08/11/19 [Rx Confirmed 08/29/19 Last Taken Unknown] Ascorbic Acid [Vitamin C with Donna Hips] 500 mg PO DAILY 08/29/19 [History Confirmed 08/29/19 Last Taken Unknown] Calcium Acetate [Phoslo] 1,334 mg PO BIDPC 08/29/19 [History Confirmed 08/30/19 Last Taken Unknown] Cholecalciferol (Vitamin D3) [D3 Dots] 2,000 unit PO DAILY 08/29/19 [History Confirmed 08/29/19 Last Taken Unknown] Cinacalcet [Sensipar] 60 mg PO QAMCC 08/29/19 [History Confirmed 08/30/19 Last Taken Unknown] Docusate Sodium [Colace] 100 mg PO TIDP PRN 08/29/19 [History Confirmed 08/30/19 Last Taken Unknown] Gentamicin Crm 0.1% 1 dose TOPICAL DAILY 08/29/19 [History Confirmed 08/30/19 Last Taken Unknown] Lancets See Dose Instructions each .ROUTE .MEDSUPPLY 08/29/19 [History Confirmed 08/29/19 Last Taken Unknown] Multivitamin [One-Daily Multi-Vitamin] 1 each PO DAILY 08/29/19 [History Confirmed 08/30/19 Last Taken Unknown] glipiZIDE [Glipizide ER] 10 mg PO BIDCC 08/29/19 [History Confirmed 08/30/19 Last Taken Unknown] traMADol HCL/ACETAMINOPHEN [Ultracet Tablet] 1 each PO Q12HP PRN 08/29/19 [History Confirmed 08/30/19 Last Taken Unknown] amLODIPine [Norvasc] 10 mg PO QDAY #30 tab 08/31/19 [Rx Last Taken Unknown] Gabapentin [Neurontin] 100 mg PO QHS #30 cap 09/01/19 [Rx Last Taken Unknown] Medical - DS: Hosp Hospital Course: A: *Generalized weakness/deconditioning/debility/failure to thrive: -There have been attempts in the past to get him to a care facility *Fallin/2 above *Renal failure, on PD: *Anemia, chronic: *DM w/neuropathy: *HTN/HLD: BP elevated *BPH: *Obese *Atelectasis: Mr. Villavicencio is a 84 year old M Presents the ED sent in by his because he is been progressively weak. Patient states he is fallen multiple times lately. These falls occur when he he is standing and transitioning from toilet to wheelchair or standing to get on his pants. He says he cannot stand very long before he gets weak and falls down. He states is been wheelchair-bound for about a year, and he is able to transfer self, but has not even tried to walk with a walker for long time. is Parkinson's and has a difficult time taking care of him and has her own medical issues. Placement has tried to be pursued with [facility] the [facility] but [facility] and then he refused to go to [facility]. He denies any acute complaints other than feeling weak. Denies any chest pain shortness of breath, denies any respiratory issues or abdominal pain. In the ED vitals were stable other than initial high blood pressure which resolved on its own. His creatinine is 6.9 and he is a peritoneal dialysis patient. Case was discussed with Dr. Roberts. No recent illnesses. 08/30 States poor sleep last night. No other new complaints. Getting peritoneal dialysis. 08/31 No overnight events. Awaiting placement as unable to take care of at home and patient has refused converting to hemodialysis to go to other skilled facilities and has refused [facility] that will except peritoneal dialysis. 09/01 still high fall risk with PT. Poor sleep last night. no new complaints other than chronic back pain. Nurse reports lethargy early in the morning, will decrease nighttime gabapentin. Patient agreed to initiate hemodialysis and will discharge to local [facility] facility. Discharge diagnosis: Failure to thrive at home generalized weakness dec onditioning renal failure Secondary discharge diagnosis: Chronic anemia diabetes hypertension BPH obesity right back pain - Time Spent with Patient Total time spent providing and/or coordinating discharge services: Greater than 30 minutes Medical - DS: Exam - Constitutional Vitals: Vital Signs Temp Pulse Resp BP BP Pulse Ox 08/31/19 16:00 98.0 F 81 20 141/74 95 08/31/19 12:00 98.1 F 70 18 140/78 96 08/31/19 08:36 98.2 F 175/75 08/31/19 08:30 132/72 08/31/19 07:12 98.2 F 66 18 175/75 97 08/31/19 03:58 98.1 F 62 14 148/66 96 08/30/19 23:10 98.7 F 69 18 190/82 94 08/30/19 20:04 97.4 F 158/64 Intake and Output 08/31/19 08/31/19 08/31/19 05:59 13:59 21:59 Intake Total 590 400 Output Total 401 3 Balance 189 397 Intake: Oral 590 400 Output: Void Amount 400 # of times incontinent of urine 1 3 Other: Meal Breakfast ice cream and cookies Percent of Meal Consumed 100% 100% Feeding Ability Assist with Tray Set Up Independent Urine Appearance Clear Clear Urine Color Pale Pale Urine Odor Normal Stool Size Large Stool Color Brown Dk Colored Stool Consistency Formed Cylindrical # Bowel Movements 1 Medical - DS: Data Labs on day of discharge: Labs from last 24 hours 08/31/19 04:35 Sodium 139 Potassium 3.9 Chloride 102 Carbon Dioxide 20 L Anion Gap 17.0 H BUN 47 H Creatinine 6.6 H* GFR Calculation 7 Glucose 136 H Uric Acid 5.3 Calcium 8.6 Phosphorus 7.2 H* Magnesium 2.1 Total Bilirubin 0.2 Direct Bilirubin < 0.2 GGT 14 AST 9 ALT 6 Alkaline Phosphatase 64 Lactate Dehydrogenase 282 H Total Protein 6.3 Albumin 2.9 L Globulin 3.4 Albumin/Globulin Ratio 0.9 L Triglycerides 117 Medical - DS: A/P - Patient/Caregiver Discharge Instructions Activity: as per physical therapy Diet: Renal/Consistent Carbs Additional Instructions: Be extremely careful with your pain medicine as it may cause dizziness, sedation, difficulties breathing, and constipation. It may easily contribute to a risk of falling. It is not well known how well this medication comes out of your system with your type of dialysis so it may accumulate so you will have to be very careful. Trying to figure out your long-term plan and coordinating care as you are having extreme difficulties being able to do so for yourself as your is limited in abilities, is certainly an important and urgent issue to consider. Consider further discussing this with the discharge planners and social workers. RETURN TO ER IF YOU HAVE IMPORTANT SYMPTOMS OR FINDINGS SUCH SIGNIFICANT OR MAJOR: -- abdominal pain -- chest pain -- shortness of breath -- bleeding -- unexplained fever -- unexplained weakness or numbness of one side of your body, difficulty speaking, or sudden loss of vision (stroke symptoms) -- sudden new "thunderclap" headache, OR other significant problems or symptoms. Prescriptions: Gabapentin [Neurontin] 100 mg PO QHS #30 cap amLODIPine [Norvasc] 10 mg PO QDAY #30 tab - Follow up Plan Follow up with: Vimal Clark PA-C [Primary Care Provider] - Ally May MD [Physician] - Disposition: Xfer SNF Prognosis: Undetermined Rehab Potential: Fair I certify that the patient requires SNF services: Yes Overall status at discharge: patient is progressing back to baseline Medical - DS: Qual - VTE Deep Vein Thrombosis/Pulmonary Embolism Present on Admission: No
[2019-08-31] MEDS: ATORVASTATIN 20 MG TABLET PO SCH (20:05)
[2019-08-31] MEDS: GABAPENTIN 300 MG CAPSULE PO SCH (20:32)
[2019-08-31] MEDS: ACETAMINOPHEN 325 MG TABLET PO PRN (23:17)
[2019-09-01] MEDS: 0.9 % SODIUM CHLORIDE 10 ML SYRINGE IV SCH ×2 (04:20→13:26)
[2019-09-01 07:37] LABS: ALT/SGPT 9 U/l (0-40); AST/SGOT 9 U/l (0-37); Albumin/Globulin Ratio 0.9 (1.0-2.3); Alkaline Phosphatase 66 U/L (39-117); Bilirubin,Direct < 0.2 mg/dL (0.0-0.3); Bilirubin,Total 0.3 mg/dL (0.0-1.0); Blood Urea Nitrogen 54 mg/dl (8-23); Calcium 8.7 mg/dl (8.6-10.4); Carbon Dioxide 21 mmol/L (22-30); Chloride 103 mmol/L (96-108); Globulin 3.4 gm/dL (2.2-3.7); Glomerular Filtration Rate 7; Glucose 95 mg/dL (70-105); Lactate Dehydrogenase 283 U/L (94-250); Phosphorous 6.4 mg/dL (2.7-4.5); Triglycerides 114 mg/dl (<150); Uric Acid 5.7 mg/dL (2.5-8.0)
--- NOTE | 2019-09-01 07:52 | Internal Med Progress Note ---
Medical - PN: Subj Patient information: Note initiated : 09/01/19 at 7:51 am Service Date, if different from initiated Date: [] Patient: Zachary Villavicencio 84 y/o M admitted on 08/29/19 for weakness. Chief Complaint: [] Interval history: Mr. Villavicencio is a 84 year old M Presents the ED sent in by his because he is been progressively weak. Patient states he is fallen multiple times lately. These falls occur when he he is standing and transitioning from toilet to wheelchair or standing to get on his pants. He says he cannot stand very long before he gets weak and falls down. He states is been wheelchair-bound for about a year, and he is able to transfer self, but has not even tried to walk with a walker for long time. is Parkinson's and has a difficult time taking care of him and has her own medical issues. Placement has tried to be pursued with him in the past but [facility] because she is a [facility] patient and then he refused to go to [facility]. He denies any acute complaints other than feeling weak. Denies any chest pain shortness of breath, denies any respiratory issues or abdominal pain. In the ED vitals were stable other than initial high blood pressure which resolved on its own. His creatinine is 6.9 and he is a peritoneal dialysis patient. Case was discussed with Dr. Roberts. No recent illnesses. 08/30 States poor sleep last night. No other new complaints. Getting peritoneal dialysis. 08/31 No overnight events. Awaiting placement as unable to take care of at home and patient has refused converting to hemodialysis to go to other skilled facilities and has refused [facility] that will except peritoneal dialysis. 09/01 still high fall risk with PT. Poor sleep last night. no new complaints other than chronic back pain. Nurse reports lethargy early in the morning, will decrease nighttime gabapentin. Review of Systems: denies headache/fever/chills/nausea/vomiting/chest or abdominal pain/cough/dyspnea/diarrhea. Otherwise see above. - Constitutional Vitals: Vital Signs Temp Pulse Resp BP Pulse Ox 98.1 F 68 16 138/61 93 09/01/19 03:10 09/01/19 03:10 09/01/19 03:10 09/01/19 03:10 09/01/19 03:10 Period Temp Pulse Resp BP Sys/Juárez Pulse Ox Last 24 Hr 97.6 F-98.5 F 68-81 16-20 132-175/61-78 92-96 Intake and Output 08/31/19 09/01/19 09/01/19 21:59 05:59 13:59 Intake Total 400 650 Output Total 3 Balance 397 650 Weight 105.324 kg Intake & Output: Intake & Output 08/31/19 09/01/19 09/01/19 21:59 05:59 13:59 Intake Total 400 650 Output Total 3 Balance 397 650 Weight 105.324 kg Intake: Oral 400 650 Output: # of times incontinent of urine 3 Other: Meal Dinner Percent of Meal Consumed 100% Feeding Ability Independent Urine Appearance Clear Urine Color Pale Exam: General: Awake, No acute Distress, obese Eyes/N/T: EOMI, , Head/Neck: neck supple, CV: RRR, 1/6 SM, Pulm: Clear b/l, no wheezing/rhonchi/rales Abd: soft, nontender, +BS x4 Ext: no clubbing/cyanosis, 2-3+ b/l LE edema Neuro: Alert, no focal deficits, moves all extremities, Skin: warm/dry Medical - PN: Obj Da - Labs CBC & Chem 7: 08/30/19 04:22 09/01/19 04:25 Labs: Abnormal Lab Results 09/01/19 08/31/19 08/30/19 04:25 04:35 04:22 RBC Hgb Hct Lymph % (Auto) Lymph # (Auto) Carbon Dioxide 21 L 20 L 19 L Anion Gap 17.0 H 17.0 H 19.0 H BUN 54 H 47 H 44 H Creatinine 7.0 H* 6.6 H* 6.5 H* Glucose 136 H 244 H Calcium 8.5 L Phosphorus 6.4 H* 7.2 H* 7.4 H* Lactate Dehydrogenase 283 H 282 H 263 H Troponin T C-Reactive Protein NT-Pro-B Natriuret Pep Albumin 3.0 L 2.9 L 3.0 L Albumin/Globulin Ratio 0.9 L 0.9 L 0.9 L 08/30/19 08/29/19 08/29/19 04:22 12:15 12:15 RBC 3.19 L Hgb 9.9 L Hct 29.8 L Lymph % (Auto) 12.7 L Lymph # (Auto) 1.1 L Carbon Dioxide 21 L Anion Gap 17.0 H BUN 46 H Creatinine 6.9 H* Glucose 158 H Calcium Phosphorus Lactate Dehydrogenase Troponin T 0.10 H* C-Reactive Protein 2.3 H NT-Pro-B Natriuret Pep 7572.0 H Albumin Albumin/Globulin Ratio 08/29/19 12:15 RBC 3.35 L Hgb 10.2 L Hct 30.3 L Lymph % (Auto) 11.7 L Lymph # (Auto) 1.1 L Carbon Dioxide Anion Gap BUN Creatinine Glucose Calcium Phosphorus Lactate Dehydrogenase Troponin T C-Reactive Protein NT-Pro-B Natriuret Pep Albumin Albumin/Globulin Ratio Meds: Medications Acetaminophen (Tylenol) 650 mg PO Q6HP PRN PRN Reason: PAIN/FEVER > 101 Last Admin: 08/31/19 23:17 Dose: 650 mg Documented by: Albuterol/Ipratropium (Duoneb) 3 ml NEB Q4HP PRN PRN Reason: Shortness Of Breath Amlodipine Besylate (Norvasc) 10 mg PO QDAY [facility]ENDING S[facility] TO [facility] Last Admin: 08/31/19 07:39 Dose: 10 mg Documented by: Atorvastatin Calcium (Lipitor) 10 mg PO HS PENDING SALE TO [facility] Last Admin: 08/31/19 20:05 Dose: 10 mg Documented by: Bumetanide (Bumex) 4 mg PO QAM PENDING SALE TO [facility] Last Admin: 08/31/19 08:54 Dose: 4 mg Documented by: Calcium Acetate (Phoslo) 1,334 mg PO BIDPC PENDING SALE TO [facility] Last Admin: 08/31/19 16:58 Dose: 1,334 mg Documented by: Cinacalcet (Sensipar) 60 mg PO QAC PENDING SALE TO [facility] Last Admin: 08/31/19 07:40 Dose: 60 mg Documented by: Dextrose (Dextrose 50%) 0 ml IV UD PRN PRN Reason: Hypoglycemia Diagnostic Test (Pha) (Accu-Chek) 1 each FS ACHS PENDING SALE TO [facility] Last Admin: 08/31/19 19:50 Dose: 1 each Documented by: Docusate Sodium (Colace) 100 mg PO BID PENDING SALE TO [facility] Last Admin: 08/31/19 20:05 Dose: 100 mg Documented by: Doxazosin Mesylate (Cardura) 4 mg PO BID PENDING S[facility] TO [facility] Last Admin: 12/02/19 20:05 Dose: 4 mg Documented by: Gabapentin (Neurontin) 300 mg PO QHS [facility]END[facility] S[facility] TO [facility] Last Admin: 08/31/19 20:32 Dose: 300 mg Documented by: Glipizide (Glucotrol Xl) 10 mg PO BIDCC PENDING SALE TO [facility] Last Admin: 08/31/19 16:59 Dose: 10 mg Documented by: Glucose (Insta-Glucose) 15 gm PO PRN PRN PRN Reason: Hypoglycemia Heparin Sodium (Porcine) (Heparin) 5,000 unit SQ Q12 PEND[facility] S[facility] TO [facility] Last Admin: 08/31/19 20:05 Dose: 5,000 unit Documented by: Hydralazine HCl (Apresoline) 0 mg IV Q2HP PRN PRN Reason: Hypertension Insulin Glargine (Lantus) 20 unit SQ HS [facility] Last Admin: 08/31/19 20:06 Dose: 8 units Documented by: Insulin Glargine (Lantus) 30 unit SQ DAILY [facility] Last Admin: 08/31/19 09:34 Dose: 30 units Documented by: Insulin Human Lispro (Humalog) 0 unit SQ [facility]; Protocol Last Admin: 08/31/19 20:31 Dose: 8 units Documented by: Insulin Human Lispro (Humalog) 7 unit SQ TIDAC PEND[facility] S[facility] TO [facility] Last Admin: 08/31/19 17:39 Dose: Not Given Documented by: Losartan Potassium (Cozaar) 100 mg PO QDAY [facility]END[facility] TO [facility] Last Admin: 08/31/19 07:39 Dose: 100 mg Documented by: Ondansetron HCl (Zofran) 4 mg IV Q4HP PRN PRN Reason: Nausea And Vomiting Polyethylene Glycol (Miralax) 17 gm PO DAILYP PRN PRN Reason: Constipation Senna (Senokot) 2 tab PO DAILYP PRN PRN Reason: Constipation Last Admin: 08/30/19 07:48 Dose: 2 tab Documented by: Sevelamer Carbonate (Renvela) 1,600 mg PO TIDCC PENDING SALE TO [facility] Last Admin: 08/31/19 16:58 Dose: 1,600 mg Documented by: Sodium Bicarbonate (Sodium Bicarbonate) 1,300 mg PO BID [facility] Last Admin: 08/31/19 20:06 Dose: 1,300 mg Documented by: Sodium Chloride (Saline Flush) 10 ml IV Q8 [facility]END[facility] Last Admin: 09/01/19 04:20 Dose: 10 ml Documented by: Tramadol/Acetaminophen (Ultracet) 1 tab PO Q12HP PRN PRN Reason: Pain Vitamin D (Vitamin D3) 2,000 unit PO DAILY [facility] Last Admin: 08/31/19 08:55 Dose: 2,000 unit Documented by: Medical - PN: A/P - Time Spent With Patient Total time spent is greater than 50% in coordination of care (as documented) at patient's floor/unit and/or counseling patient: - Narrative A/P Narrative: A: *Generalized weakness/deconditioning/debility/failure to thrive/Falling: -There have been attempts in the past to get him to a care facility as he has been falling at home for some time and frequently calls EMS. *Renal failure, on PD: refuses HD *Anemia, chronic: *DM w/neuropathy: *HTN/HLD: *BPH: *Obese *Atelectasis: *chr back pain: P: -Nephrology for dialysis -pt/ot -CM for placement -cont home norvasc(increased)/ARB/Bumex -decrease terrence -SSI, basal insulin -IS -ppx: heparin Medical - PN: Qual - VTE Deep Vein Thrombosis/Pulmonary Embolism Present on Admission: No
[2019-09-01] MEDS: INSULIN LISPRO 1 UNIT/0.01 ML UNIT SQ SCH ×4 (08:33→13:25)
[2019-09-01] MEDS ORDERED: INSULIN GLARGINE, HUMAN 1 UNIT/0.01 ML SQ SCH (09:00)
[2019-09-01] MEDS: glipiZIDE 5 MG TAB.XL.24H PO SCH (09:07)
[2019-09-01] MEDS: CALCIUM ACETATE 667 MG CAPSULE PO SCH (09:08)
[2019-09-01] MEDS: BUMETANIDE 1 MG TABLET PO SCH (09:08)
[2019-09-01] MEDS: amLODIPine 5 MG TABLET PO SCH (09:10)
[2019-09-01] MEDS: CINACALCET 30 MG TABLET PO SCH (09:10)
[2019-09-01] MEDS: DOXAZOSIN 4 MG TABLET PO SCH (09:10)
[2019-09-01] MEDS: VITAMIN D3 1,000 UNIT TABLET PO SCH (09:11)
[2019-09-01] MEDS: SODIUM BICARBONATE 650 MG TABLET PO SCH (09:11)
[2019-09-01] MEDS: LOSARTAN 50 MG TABLET PO SCH (09:11)
[2019-09-01] MEDS: HEPARIN 5,000 UNIT/ML VIAL SQ SCH (09:12)
[2019-09-01] MEDS: DOCUSATE SODIUM 100 MG CAPSULE PO SCH (09:13)
[2019-09-01] MEDS ORDERED: traMADol 50 MG TABLET PO PRN (09:25)
[2019-09-01] MEDS: SEVELAMER 800 MG TABLET PO SCH ×2 (09:31→13:25)
[2019-09-01] MEDS ORDERED: MELATONIN 3 MG TABLET PO SCH (21:00)
[2019-09-01] MEDS ORDERED: GABAPENTIN 100 MG CAPSULE PO SCH (21:00)
== END 2019-09-01 14:34 | DRG 555 ==
LOC: MEDSUR 11:15 → ED 11:15 → MEDSUR 17:15 → OBSVTOIN 17:28
PROVIDERS: ADMIT Internal Medicine; ATTEND Internal Medicine